=== PATIENT | female | born 1960 | race African-American/Black ===

== ENCOUNTER 2019-12-19 15:08 | Outpatient (CLI) | payer MEDICARE, MEDICAID, SELFPAY ==
--- NOTE | ~2019-12-19 | DEXA_ITS ---
Bone Density Report Name: Ewelina Roland Age: 59 Sex: Female Ethnicity: Black Date of : 1960 Indication: postmenopausal; Referring Provider: FRED AYALA Study: Bone densitometry was performed. Exam Date: December 19, 2019 Accession number: [id number] Bone Density: Region BMD T-score Z-score Classification AP Spine (L1-L4) 0.956 -0.8 -0.3 Normal Femoral Neck (Left) 0.816 -0.3 0.0 Normal Total Hip (Left) 1.102 1.3 1.2 Normal Total Hip Bilateral Avg 1.106 1.4 1.2 Normal Femoral Neck (Right) 0.799 -0.4 -0.1 Normal Total Hip (Right) 1.108 1.4 1.2 Normal World Health Organization criteria for BMD impression classify patients as: Normal (T-score at or above -1.0), Osteopenia (T-score between -1.0 and -2.5), or Osteoporosis (T-score at or below -2.5). 10-year Fracture Risk: FRAX not reported because: All T-scores for Spine Total, Hip Total, Femoral Neck at or above -1.0 Previous Exams: Region Exam Age BMD T-score BMD Change BMD Change Date g/cm2 vs Baseline vs Previous AP Spine(L1-L4) 12/19/2019 59 0.956 -0.8 0.057(6.4%)# -0.031(-3.1%)* 11/02/2015 55 0.986 -0.6 0.088(9.8%)# -0.005(-0.5%)# 08/25/2013 53 0.992 -0.5 0.093(10.4%)# 0.093(10.4%)# 07/31/2011 51 0.898 -1.4 Total Hip(Left) 12/19/2019 59 1.102 1.3 0.102(10.2%)# -0.046(-4.0%)# 11/02/2015 55 1.148 1.7 0.147(14.7%)# -0.054(-4.5%)# 08/25/2013 53 1.202 2.1 0.202(20.2%)# 0.202(20.2%)# 07/31/2011 51 1.001 0.5 Total Hip(Right) 12/19/2019 59 1.108 1.4 0.072(6.9%)# 0.012(1.1%) 11/02/2015 55 1.096 1.3 0.060(5.8%)# -0.061(-5.3%)# 08/25/2013 53 1.157 1.8 0.121(11.7%)# 0.121(11.7%)# 07/31/2011 51 1.036 0.8 *Denotes significance at 95% confidence level, LSC for AP Spine = 0.022 g/cm2, LSC for Total Hip = 0.027 g/cm2 Clinical Information Provided by Patient: Has used the following medications: Vitamin D Patient maximum height was 61 Menopause Age: 51 No regular weight bearing exercise Drinks caffeinated beverages Onset of menses at age 15 Number of children 1 Impression: The patient has normal bone mass. The BMD for the AP Spine(L1-L4) decreased, changing by -3.1% since the last DXA exam. Discussion: BONE DENSITY IS ABOVE THE MINIMUM DESIRABLE LEVEL AT ALL SKELETAL SITES TESTED. This patient?s bone mineral density is above the minimum desirable level (T-score -1.0 or better) at all sites measured.
== END 2019-12-19 15:09 | disposition home or self-care (01) ==
LOC: ANHIMG 15:17
PROVIDERS: Visit Provider Obstetrics & Gynecology
DX: Z78.0 Asymptomatic menopausal state (principal)
CPT/HCPCS: 77080

== ENCOUNTER 2020-11-01 09:01 | Outpatient (CLI) | payer MEDICARE, MEDICAID, SELFPAY ==
--- NOTE | ~2020-11-01 | MM_ITS ---
EXAMINATION: MM screening [facility] w [facility] HISTORY: Screening mammogram TECHNIQUE: Craniocaudal and mediolateral oblique 3-D tomosynthesis images were obtained and synthetic 2-D images were generated. CAD analysis was submitted and interpreted. COMPARISON: 1595 2019, 09/21/2018, 09/06/2017 bilateral digital screening mammogram examinations BREAST PARENCHYMAL COMPOSITION: There are scattered areas of fibroglandular density. FINDINGS: There is no evidence of suspicious mass, calcification, or architectural distortion to sugg est malignancy in either breast. There has been no suspicious interval change. IMPRESSION: 1. No mammographic evidence of malignancy. 2. Recommend routine screening mammography in one year. BI-RADS Category 1: Negative Reviewed, dictated and finalized at location A. MOBILE DEVELOPER
== END 2020-11-01 09:02 | disposition home or self-care (01) ==
LOC: ANHIMG 09:06
PROVIDERS: PCP Obstetrics & Gynecology; Visit Provider Obstetrics & Gynecology
DX: Z12.31 Encounter for screening mammogram for malignant neoplasm of breast (principal)
CPT/HCPCS: 77063; 77067

== ENCOUNTER 2020-12-17 08:27 | Outpatient (CLI) | payer MEDICARE, MEDICAID, SELFPAY | END 2020-12-17 08:28 | disposition home or self-care (01) | LOC: ANHCOVIDVC 08:27 | PROVIDERS: PCP Obstetrics & Gynecology | DX: Z23 Encounter for immunization (principal) | CPT/HCPCS: 0001A; 91300 ==

== ENCOUNTER 2021-01-07 08:29 | Outpatient (CLI) | payer MEDICARE, MEDICAID, SELFPAY | END 2021-01-07 08:30 | disposition home or self-care (01) | LOC: ANHCOVIDVC 08:29 | PROVIDERS: PCP Obstetrics & Gynecology | DX: Z23 Encounter for immunization (principal) | CPT/HCPCS: 0002A; 91300 ==

== ENCOUNTER 2021-03-11 21:40 | Emergency (ER) | payer MEDICARE, MEDICAID, SELFPAY ==
--- NOTE | ~2021-03-11 | XR_ITS ---
EXAMINATION: XR ankle RT min 3V, XR foot RT min 3V DATE: 03/12/2021 01:13 INDICATION: Medial right ankle pain extending over the dorsum of the foot and into the toes. TECHNIQUE: 1. Anteroposterior, mortise, additional oblique and lateral view of the right ankle were obtained. 2. Dorsoplantar, two oblique and lateral views of the right foot were obtained. COMPARISON: None. FINDINGS: Alignment of the foot and ankle is normal. No fracture or osteochondral lesion. Heterotopic ossicles about the tip the medial malleolus likely sequela of chronic ankle sprain. Moderate polyarticular ost eoarthritis with subarticular cystic changes at at multiple joints the midfoot including the navicula r cuneiform and multiple tarsal metatarsal joints. Mild osteoarthritis at many of the remaining joint s in the right foot. Moderate-sized plantar calcaneal spur. No ankle joint effusion. Diffuse soft tis carl swelling about the right foot and ankle. IMPRESSION: 1. Mild to moderate polyarticular osteoarthritis in the right foot. No acute osseous abnormality. Reviewed, dictated and finalized at location A. IMPRESSION: 1. Mild to moderate polyarticular osteoarthritis in the right foot. No acute os seous abnormality.
[2021-03-11 21:44] VITALS: BP 141/80; PULSE 90; RESP 18; TEMP 37.4; O2SAT 96
--- NOTE | 2021-03-12 01:00 | ED.EXTPRO ---
HPI - Extremity Problem General Chief complaint: Extremity Problem,Nontraumatic Stated complaint: right foot pain x 4 days Time Seen by Provider: 03/12/21 00:53 Source: patient Mode of arrival: ambulatory Limitations: no limitations History of Present Illness HPI Narrative: This is a 61-year-old female that presents to the emergency department for right foot pain x4 days. No known injury or trauma. Reports the pain is in the ankle and radiates into the foot on the dorsal surface. Pain is worse with weightbearing and relieved with rest. She has not been taking anything for pain. Denies fever, erythema, edema, decreased range of motion, or numbness. Related Data Home Medications Medication Instructions Recorded Confirmed aspirin 81 mg tablet,delayed 81 mg PO DAILY 11/27/19 release clonidine HCl 0.1 mg tablet 0.1 mg PO DAILY 11/27/19 diltiazem HCl 180 mg 180 mg PO DAILY 11/27/19 capsule,extended release 24 hr docusate sodium 100 mg capsule 100 mg PO DAILY 11/27/19 ferrous sulfate 325 mg (65 mg 325 mg PO DAILY 11/27/19 iron) tablet furosemide 40 mg tablet 40 mg PO QAM 11/27/19 hydrochlorothiazide 25 mg tablet 25 mg PO DAILY 11/27/19 lisinopril 40 mg tablet 40 mg PO DAILY 11/27/19 multivit with 1 tablet PO DAILY 11/27/19 kclyrqqx-ivjl-OV-lutein 8 mg iron-400 mcg-300 mcg tablet potassium citrate 10 mEq (1,080 10 meq PO TID 11/27/19 mg) tablet,extended release simvastatin 80 mg tablet 80 mg PO DAILY 11/27/19 Allergies Allergy/AdvReac Type Severity Reaction Status Date / Time No Known Allergies Allergy Verified 11/27/19 11:16 Review of Systems Review of Systems: Narrative: CONSTITUTIONAL: Denies fever MUSCULOSKELETAL: Reports joint pain, and myalgia. NEUROLOGIC: Denies numbness All systems reviewed & are unremarkable except as noted in HPI and below PMFSH Past Medical History Medical History (Updated 03/12/21 @ 01:31 by Imelda Sanchez PA-C) COPD (chronic obstructive pulmonary disease) Elevated lipids Hypertension Osteoarthritis of right knee Stroke Surgical History Surgical History History of knee surgery Family History Family History Mother Hypertension Sibling Hypertension Other Acute myocardial infarction Family history of malignant neoplasm Social History Social History Smoking status: Never smoker Alcohol intake: current Exam Narrative: Exam Narrative: GENERAL: Well-appearing, well-nourished, and in no acute distress. HEAD: Normocephalic, atraumatic. EYES: EOMI. EXTREMITIES: Normal range of motion. No edema, erythema or obvious deformity. Normal DP pulses. Normal sensation SKIN: Warm, dry, no rash. NEURO: No focal deficits. Alert and oriented x3. PSYCH: Normal mood and affect Course Vital Signs Vital signs: Vital Signs Temperature 99.3 F 03/11/21 21:44 Pulse Rate 90 03/11/21 21:44 Respiratory Rate 18 03/11/21 21:44 Blood Pressure 141/80 H 03/11/21 21:44 Pulse Oximetry 96 03/11/21 21:44 Temperature 99.3 F 03/11/21 21:44 Pulse Rate 90 03/11/21 21:44 Respiratory Rate 18 03/11/21 21:44 Blood Pressure 141/80 H 03/11/21 21:44 Pulse Oximetry 96 03/11/21 21:44 MDM - Extremity (Nontraumatic) MDM Narrative Medical decision making narrative: Patient presents the emergency department for right foot and ankle pain x4 days. No known injury or trauma. No erythema or warmth of the ankle. Patient is afebrile and nontoxic-appearing. She is neurovascularly intact. Right foot and ankle x-rays are without acute osseous abnormalities. Patient placed in postop shoe for comfort and instructed to rest, ice and take tbyg-[id number]-hbazwfk pain medication as needed. She is to follow-up with her primary care doctor. She was given warnings to return to the ER Imagin
[2021-03-12] MEDS: ACETAMINOPHEN 500 MG TABLET 1000 MG PO (01:41)
--- NOTE | 2021-03-12 01:41 | PC.NURSE ---
post op shoe applied as ordered.
[2021-03-12 01:48] VITALS: BP 141/86; PULSE 82; RESP 16; TEMP 36.3; O2SAT 98
== END 2021-03-12 01:49 | disposition home or self-care (01) ==
PROVIDERS: Emergency Provider Emergency Medicine; PCP Obstetrics & Gynecology
DX: S93.601A Unspecified sprain of right foot, initial encounter (principal); J44.9 Chronic obstructive pulmonary disease, unspecified; E78.5 Hyperlipidemia, unspecified; I10 Essential (primary) hypertension; M19.90 Unspecified osteoarthritis, unspecified site; X58.XXXA Exposure to other specified factors, initial encounter
CPT/HCPCS: 73610; 73630; 99283; A9270

== ENCOUNTER 2023-05-10 00:52 | Day surgery (SDC) | payer MEDICARE, MEDICAID, SELFPAY ==
[2023-04-29 14:32] VITALS: BMI 46.9
[2023-05-10 11:41] VITALS: BP 150/84; PULSE 77; RESP 77; TEMP 36.4; O2SAT 96
[2023-05-10] MEDS: LACTATED RINGERS 1,000 ML 150 ML IV CONT (11:50)
--- NOTE | 2023-05-10 11:55 | PM.HPGS ---
History of Present Illness History of Present Illness Consent: Risks, benefits, and alternatives have been discussed and questions answered. Patient agrees to proceed with procedure. Chief complaint: neoplasm screening Narrative: Ewelina Roland is a 63 year old female Presents for screening colonoscopy. Patient's current weight appetite and bowel movements are normal. Patient denies abdominal pain. She has had no bleeding. Family history noncontributory. Review of Systems Review of Systems: Review of systems noncontributory. [facility] Past Medical History Medical History Congestive heart failure COPD (chronic obstructive pulmonary disease) Elevated lipids H/O gastroesophageal reflux (GERD) Hypertension Osteoarthritis of right knee Sleep apnea Stroke Surgical History Surgical History H/O total cystectomy History of knee surgery Family History Family History Mother Hypertension Sibling Hypertension Father Hypertension Other Acute myocardial infarction Family history of malignant neoplasm Social History Social History Smoking status: Never smoker Alcohol intake: current Alcohol use details: occasional Substance use: never Substance use type: does not use Living arrangements: with family Spiritual care concerns: No Meds Home Medications and Allergies Home Medications Medication Instructions Recorded Confirmed Type aspirin 81 mg tablet,delayed 81 mg PO DAILY 11/27/19 04/29/23 History release clonidine HCl 0.1 mg tablet 0.1 mg PO BID 11/27/19 04/29/23 History diltiazem HCl 180 mg 180 mg PO DAILY 11/27/19 04/29/23 History capsule,extended release 24 hr (Cartia XT) docusate sodium 100 mg capsule 100 mg PO DAILY 11/27/19 04/29/23 History ferrous sulfate 325 mg (65 mg 325 mg PO DAILY 11/27/19 04/29/23 History iron) tablet furosemide 40 mg tablet 40 mg PO QAM 11/27/19 04/29/23 History hydrochlorothiazide 25 mg tablet 25 mg PO DAILY 11/27/19 04/29/23 History lisinopril 40 mg tablet 40 mg PO DAILY 11/27/19 04/29/23 History usinbsjd-dbcz-qvfg 8 mg-folic 400 1 tablet PO DAILY 11/27/19 04/29/23 History mcg-K 50 mcg-lutein 300 mcg tablet (Centrum Silver Women) simvastatin 80 mg tablet 80 mg PO DAILY 11/27/19 04/29/23 History cholecalciferol (vitamin D3) 125 125 mcg PO DAILY 04/29/23 04/29/23 History mcg (5,000 unit) tablet (Vitamin D3) omeprazole 20 mg capsule,delayed 20 mg PO DAILY PRN Indigestion 04/29/23 04/29/23 History release potassium chloride 20 mEq 20 meq PO DAILY 04/29/23 04/29/23 History tablet,extended release(part/cryst) Allergies Allergy/AdvReac Type Severity Reaction Status Date / Time No Known Allergies Allergy Verified 05/10/23 11:40 Vital Signs Vital Signs - 24 hr 05/10/23 11:41 Temperature 97.5 F L Pulse Rate 77 Respiratory Rate 77 H Blood Pressure 150/84 H Pulse Oximetry 96 Oxygen Delivery Room Air Exam Narrative: Physical exam reveals patient to be alert. Vital signs stable. HEENT exam is unremarkable. Patient is anicteric. Lungs are clear to auscultation and percussion. Heart is without murmur or extra sounds. Abdomen bowel sounds are present soft nontender with no organomegaly. Digital external rectal exam normal. Assessment and Plan Assessment and plan (1) Encounter for screening colonoscopy: Code(s): Z12.11 - Encounter for screening for malignant neoplasm of colon Status: Acute Assessment and Plan: Patient presents today for screening colonoscopy. She appears to be at average risk for colon polyps. Further recommendations may be given after endoscopy.
--- NOTE | 2023-05-10 13:10 | WPDANESEPPF ---
Anes - Initial Pre Proc Eval Procedure: Operation Date: 05/10/23 13:00 Proposed Procedures p Screening Colonoscopy - Devon Meneses MD Date/Time: 05/10/23 13:10 Surgeon: Devon Meneses MD Pre Op Diagnosis: neoplasm screening Patient Data Age: 63 Gender: F Height: 1.52 m Weight: 111.8 kg Last Vital Signs Temp 97.5 F L 05/10/23 11:41 Pulse 77 05/10/23 11:41 Resp 77 H 05/10/23 11:41 BP 150/84 H 05/10/23 11:41 Pulse Ox 96 05/10/23 11:41 O2 Del Method Room Air 05/10/23 11:41 Allergies Allergy/AdvReac Type Severity Reaction Status Date / Time No Known Allergies Allergy Verified 05/10/23 11:40 Home Medications Medication Instructions Recorded Confirmed Type aspirin 81 mg tablet,delayed 81 mg PO DAILY 11/27/19 04/29/23 History release clonidine HCl 0.1 mg tablet 0.1 mg PO BID 11/27/19 04/29/23 History diltiazem HCl 180 mg 180 mg PO DAILY 11/27/19 04/29/23 History capsule,extended release 24 hr (Cartia XT) docusate sodium 100 mg capsule 100 mg PO DAILY 11/27/19 04/29/23 History ferrous sulfate 325 mg (65 mg 325 mg PO DAILY 11/27/19 04/29/23 History iron) tablet furosemide 40 mg tablet 40 mg PO QAM 11/27/19 04/29/23 History hydrochlorothiazide 25 mg tablet 25 mg PO DAILY 11/27/19 04/29/23 History lisinopril 40 mg tablet 40 mg PO DAILY 11/27/19 04/29/23 History moildoai-ohrs-lsei 8 mg-folic 400 1 tablet PO DAILY 11/27/19 04/29/23 History mcg-K 50 mcg-lutein 300 mcg tablet (Centrum Silver Women) simvastatin 80 mg tablet 80 mg PO DAILY 11/27/19 04/29/23 History cholecalciferol (vitamin D3) 125 125 mcg PO DAILY 04/29/23 04/29/23 History mcg (5,000 unit) tablet (Vitamin D3) omeprazole 20 mg capsule,delayed 20 mg PO DAILY PRN Indigestion 04/29/23 04/29/23 History release potassium chloride 20 mEq 20 meq PO DAILY 04/29/23 04/29/23 History tablet,extended release(part/cryst) Patient hx anesthesia problems: none Family hx anesthesia problems: none Results Review: All pre-operative results and documents have been reviewed as part of the pre-operative evaluation. [facility] Past Medical History Medical History Congestive heart failure COPD (chronic obstructive pulmonary disease) Elevated lipids H/O gastroesophageal reflux (GERD) Hypertension Osteoarthritis of right knee Sleep apnea Stroke Surgical History Surgical History H/O total cystectomy History of knee surgery Family History Family History Mother Hypertension Sibling Hypertension Father Hypertension Other Acute myocardial infarction Family history of malignant neoplasm Social History Social History Smoking status: Never smoker Alcohol intake: current Alcohol use details: occasional Substance use: never Substance use type: does not use Living arrangements: with family Spiritual care concerns: No Anes - Eval Final PreProcedure Day of Procedure 05/10/23 13:10 Patient weight: morbidly obese Heart: regular rate and rhythm Lungs: clear to auscultation Airway: Mallampati scale class III Neurological: alert and oriented Last oral intake: >/= 8 hours ASA classification: III Emergent: no Anesthetic plan: proceed Anesthesia type and monitoring: general GIVS and standard monitoring Results Review: All pre-operative results and documents have been reviewed as part of the pre-operative evaluation. Informed Consent: The patient's anesthetic plan and its attendant risks and benefits were discussed with the patient/family/POA. Questions were solicited and answers provided to the satisfaction of the patient/family/POA.
[2023-05-10 13:36] VITALS: BP 109/70; PULSE 70; RESP 20; O2SAT 95
[2023-05-10 13:46] VITALS: BP 118/74; PULSE 70; RESP 18; O2SAT 99
[2023-05-10 13:56] VITALS: BP 129/78; PULSE 67; RESP 20; O2SAT 99
== END 2023-05-10 14:07 | disposition home or self-care (01) ==
PROVIDERS: Referring Provider Obstetrics & Gynecology; Visit Provider Internal Medicine Gastroenterology
PROC: 0DJD8ZZ Inspection of Lower Intestinal Tract, Via Natural or Artificial Opening Endoscopic (ICD-10-PCS; CPT 45378; principal; 2023-05-10 13:00)
DX: Z12.11 Encounter for screening for malignant neoplasm of colon (principal); K57.30 Diverticulosis of large intestine without perforation or abscess without bleeding; I11.0 Hypertensive heart disease with heart failure; I50.9 Heart failure, unspecified; K64.8 Other hemorrhoids; J44.9 Chronic obstructive pulmonary disease, unspecified; E78.5 Hyperlipidemia, unspecified; K21.9 Gastro-esophageal reflux disease without esophagitis; G47.30 Sleep apnea, unspecified; E66.01 Morbid (severe) obesity due to excess calories; Z68.42 Body mass index [BMI] 45.0-49.9, adult; Z86.73 Personal history of transient ischemic attack (TIA), and cerebral infarction without residual deficits; Z79.82 Long term (current) use of aspirin
CPT/HCPCS: G0121; J2704; J7120

== ENCOUNTER 2023-05-27 15:00 | Outpatient (CLI) | payer MEDICARE, MEDICAID, SELFPAY ==
--- NOTE | ~2023-05-27 | MM_ITS ---
EXAMINATION: MM screening [facility] BI w claire HISTORY: Screening TECHNIQUE: Craniocaudal and mediolateral oblique 3-D tomosynthesis images were obtained and synthetic 2-D images were generated. CAD analysis was submitted and interpreted. COMPARISON: Comparison to multiple prior studies sequentially, with oldest reviewed study dated 08/11. BREAST PARENCHYMAL COMPOSITION: There are scattered areas of fibroglandular density. FINDINGS: There is no evidence of suspicious mass, calcification, or architectural distortion to sugg est malignancy in either breast. There has been no suspicious interval change. IMPRESSION: 1. No mammographic evidence of malignancy. 2. Recommend routine screening mammography in one year. BI-RADS Category 1: Negative Reviewed, dictated and finalized at location A.
== END 2023-05-27 15:01 | disposition home or self-care (01) ==
PROVIDERS: Visit Provider Obstetrics & Gynecology
DX: Z12.31 Encounter for screening mammogram for malignant neoplasm of breast (principal)
CPT/HCPCS: 77063; 77067

== ENCOUNTER 2023-09-15 21:22 | Observation (INO) | payer MEDICARE, MEDICAID, SELFPAY ==
--- NOTE | ~2023-09-15 | XR_ITS ---
EXAMINATION: XR chest 2V Exam Date/Time: 09/15/2023 21:50 SANDBLAST OPERATOR HISTORY: chest pain Comparison: 06/24/2018. RESULT: Lines, tubes, and devices: None. Lungs and pleura: Clear. Cardiomediastinal silhouette: Stable. Other: No acute osseous or upper abdominal finding. IMPRESSION: No acute cardiopulmonary process. Reviewed, dictated and finalized at location K. BLAST OPERATOR
--- NOTE | 2023-09-15 21:26 | ECG_ITS ---
Measurements Intervals [place] Rate: 64 P: 49 HI: 166 QRS: -21 QRSD: 97 T: 10 QT: 374 QTc: 386 Interpretive Statements SINUS RHYTHM BORDERLINE LEFT AXIS DEVIATION [QRS AXIS < -20] NO PREVIOUS ECG AVAILABLE FOR COMPARISON Electronically Signed On 09-16-2023 9:18:39 BOTTLE WASHER by Gonzalez Choudhury M.D.
[2023-09-15 21:30] VITALS: BP 177/106; PULSE 64; RESP 14; TEMP 36.4; O2SAT 98
[2023-09-15 21:57] LABS: Basophils Absolute Auto 0.1 K/mm3 (0.0-0.1); Basophils Percent Auto 0.9 % (0.2-1.2); Eosinophils Absolute Auto 0.2 K/mm3 (0-0.3); Eosinophils Percent Auto 2.1 % (0-4.4); Hemoglobin 13.5 g/dL (12.0-15.0); Immature Granulocyte Absolute 0.02 K/mm3 (0.00-0.031); Immature Granulocyte Percent A 0.3 % (0-0.5); Lymphocytes Absolute Auto 3.34 K/mm3 (0.9-3.2); Lymphocytes Percent Auto 43.7 % (18.3-44.2); Mean Corpuscular HGB Conc 32.1 g/dl (32-36); Mean Corpuscular Hemoglobin 28.1 pg (26-34); Mean Corpuscular Volume 87.5 fl (80-100); Mean Platelet Volume 10.6 fl (7.4-10.4); Monocytes Absolute Auto 0.7 K/mm3 (0.1-0.6); Neutrophils Absolute Auto 3.4 K/mm3 (1.3-6.7); Platelet Count Result 219 k/mm3 (150-375); Red Cell Distribution Width 13.3 % (11.5-14.5); White Blood Count 7.7 K/mm3 (4.5-10.0)
[2023-09-15 22:06] LABS: Prothrombin Time 13.2 Seconds (11.1-14.7)
[2023-09-15 22:07] LABS: Partial Thromboplastin Time 27.4 SECONDS (22.3-36.8)
[2023-09-15 22:17] LABS: Alanine Aminotransferase 23 U/L (6-35); Albumin Level 4.6 g/dL (3.5-5.1); Alkaline Phosphatase 107 U/L (38-126); Anion Gap 12 mmol/L (8-16); Aspartate Amino Transferase 29 U/L (14-36); Bilirubin,Total 0.6 mg/dL (0.2-1.3); Blood Urea Nitrogen 18 mg/dL (7-17); Calcium 9.8 mg/dL (8.4-10.2); Carbon Dioxide 29 mmol/L (22-30); Chloride 98 mmol/L (98-107); Estimated CRCL calculation 74 ml/min; Estimated Glomerular Filt Rate > 60; Glucose 103 mg/dL (65-110); Lipase 108 U/L (23-300); Potassium 3.4 mmol/L (3.4-5.0); Sodium 139 mmol/L (137-145)
[2023-09-15 22:28] LABS: Troponin I < 0.012 ng/mL (0.000-0.034)
[2023-09-16] VITALS (39 sets, daily range): BP systolic 113–161; BP diastolic 71–93; PULSE 57–87; RESP 14–21; O2SAT 94–100
--- NOTE | 2023-09-16 01:55 | ECG_ITS ---
Measurements Intervals [place] Rate: 60 P: 30 RI: 123 QRS: -18 QRSD: 100 T: 11 QT: 404 QTc: 405 Interpretive Statements SINUS RHYTHM LOW QRS VOLTAGE IN PRECORDIAL LEADS [QRS DEFLECTION < 1.0 mV IN CHEST LEADS] COMPARED TO ECG 09/15/2023 21:48:04 NO SIGNIFICANT CHANGES Electronically Signed On 09-16-2023 9:20:33 CERAMIC WORKER by Gonzalez Choudhury M.D.
[2023-09-16 02:02] LABS: Troponin I < 0.012 ng/mL (0.000-0.034)
--- NOTE | 2023-09-16 02:10 | PC.NURSE ---
Runs of Vtach noted at 0153 and 0207 on [employer]. Printed and shown to Dr. Horton
--- NOTE | 2023-09-16 02:21 | ED.CHESTPAIN ---
HPI - Chest Pain General Chief Complaint: Chest Pain Stated Complaint: weakness, left arm pain Time Seen by Provider: 09/16/23 02:08 History of Present Illness HPI narrative: Patient is a 63-year-old female with a history of CHF, hypertension, GERD, hyperlipidemia presenting with weakness and left arm pain. Patient states that earlier today her left arm was feeling sore and heavy. States that she also had some substernal chest pain. States that she felt extremely weak and so she became concerned that she was having a heart attack. States that both of her parents had heart attacks. States that she recently had a stress test and was told that there was a small blockage that she needs to follow up for. She denies shortness of breath, abdominal pain, nausea vomiting, leg swelling. Denies lightheadedness or syncope. No palpitations. No further complaints. Related Data Home Medications Medication Instructions Recorded Confirmed aspirin 81 mg tablet,delayed 81 mg PO DAILY 11/27/19 09/16/23 release clonidine HCl 0.1 mg tablet 0.1 mg PO BID 11/27/19 09/16/23 diltiazem HCl 180 mg 180 mg PO DAILY 11/27/19 09/16/23 capsule,extended release 24 hr (Cartia XT) docusate sodium 100 mg capsule 100 mg PO DAILY 11/27/19 09/16/23 ferrous sulfate 325 mg (65 mg 325 mg PO DAILY 11/27/19 09/16/23 iron) tablet furosemide 40 mg tablet 40 mg PO QAM 11/27/19 09/16/23 hydrochlorothiazide 25 mg tablet 25 mg PO DAILY 11/27/19 09/16/23 lisinopril 40 mg tablet 40 mg PO DAILY 11/27/19 09/16/23 pfmknvpt-gpwk-npgo 8 mg-folic 400 1 tablet PO DAILY 11/27/19 09/16/23 mcg-K 50 mcg-lutein 300 mcg tablet (Centrum Silver Women) simvastatin 80 mg tablet 80 mg PO DAILY 11/27/19 09/16/23 cholecalciferol (vitamin D3) 125 125 mcg PO DAILY 04/29/23 09/16/23 mcg (5,000 unit) tablet (Vitamin D3) potassium chloride 20 mEq 20 meq PO DAILY 04/29/23 09/16/23 tablet,extended release(part/cryst) Allergies Allergy/AdvReac Type Severity Reaction Status Date / Time No Known Allergies Allergy Verified 05/10/23 11:40 Review of Systems Review of Systems: All systems reviewed & are unremarkable except as noted in HPI and below PMFSH Past Medical History Medical History Congestive heart failure COPD (chronic obstructive pulmonary disease) Elevated lipids Family history of heart disease H/O gastroesophageal reflux (GERD) Hypertension Osteoarthritis of right knee Sleep apnea Stroke Surgical History Surgical History H/O total cystectomy History of knee surgery Family History Family History Mother Hypertension Sibling Hypertension Father Hypertension Other Acute myocardial infarction Family history of malignant neoplasm Social History Social History Smoking status: Never smoker Alcohol intake: current Alcohol use details: occasional Substance use: never Substance use type: does not use Living arrangements: with family Spiritual care concerns: No Exam Narrative: GENERAL: Nontoxic, no acute distress, pleasant cooperative HEAD: Normocephalic, atraumatic. EYES: PERRLA and EOMI. ENT: Mucous membranes moist. NECK: Supple. CHEST: Clear to auscultation. No respiratory distress. HEART: Regular rate and rhythm. No murmur heard. Normal peripheral pulses. ABDOMEN: Soft, nontender, nondistended EXTREMITIES: Normal range of motion. No edema. SKIN: Warm, dry NEURO: Alert and oriented x3. PSYCH: Normal mood and affect. Course Vital Signs Vital signs: Vital Signs Temperature 97.6 F 09/15/23 21:30 Pulse Rate 64 09/15/23 21:30 Respiratory Rate 14 09/15/23 21:30 Blood Pressure 177/106 H 09/15/23 21:30 Pulse Oximetry 98 09/15/23 21:30 Temperature 97.6 F 09/15/23 21:30 Pulse Rate
[2023-09-16] MEDS: ASPIRIN 81 MG CHEWABLE TABLET 324 MG PO (02:23)
[2023-09-16 02:38] LABS: Magnesium 1.9 mg/dL (1.6-2.3)
[2023-09-16 02:48] LABS: NT Pro B Type Natriuretic Pept < 20 pg/mL (19.9-100)
[2023-09-16] MEDS: POTASSIUM CHLORIDE 20 MEQ ER TABLET 40 MEQ PO (02:51)
[2023-09-16 04:40] LABS: Troponin I < 0.012 ng/mL (0.000-0.034)
--- NOTE | 2023-09-16 08:07 | ECHO_ITS ---
Patient Info Name: Ewelina Roland Age: 63 years : 1960 Gender: Female Ht: 65 in Wt: 260 lbs BSA: 2.39 m2 HR: 2 bpm BP: 161 / 92 mmHg Heart Rhythm: Sinus Rhythm Technical Quality: Good Exam Date: 09/16/2023 2:43 PM Exam Location: Echo Lab Patient Status: Outpatient Admit Date: 09/16/2023 Staff Ordering Physician: Fritz Augustine MD [employer] Principal: Clover Islas RDCS Attending Provider: Fritz Augustine MD Exam Type: CA echo doppler color flow Study Info Indications - CHEST PAIN WITH RECENT ABNORMAL STRESS TEST Complete two-dimensional, color flow and Doppler transthoracic echocardiogram is performed. Summary 1. Complete two-dimensional, color flow and Doppler transthoracic echocardiogram is performed. 2. Left ventricular chamber dimension is normal. 3. Left ventricular systolic function is normal, estimated at 50-55%. 4. There is mildly increased left ventricular wall thickness. 5. The left ventricular diastolic function is grade I diastolic dysfunction. 6. Right ventricular systolic function is normal. 7. There is trace mitral valve regurgitation. 8. There is trace tricuspid valve regurgitation. 9. There is trace pulmonic regurgitation. Left Ventricle Left ventricular chamber dimension is normal. Left ventricular systolic function is normal, estimated at 50-55%. There is mildly increased left ventricular wall thickness. The left ventricular diastolic function is grade I diastolic dysfunction. Right Ventricle Right ventricular chamber dimension is normal. Right ventricular systolic function is normal. Left Atria Left atrial chamber dimension is normal. Right Atria Right atrial chamber dimension is normal. Atrial Septum Intact interatrial septum visualized by color flow imaging. Aortic Valve The aortic valve is not well visualized. There is no aortic valve regurgitation. There is mild aortic valve calcification. Pulmonic Valve The pulmonic valve is not well visualized. There is trace pulmonic regurgitation. Mitral Valve There is trace mitral valve regurgitation. Tricuspid Valve There is trace tricuspid valve regurgitation. Pericardium/Pleural There is no pericardial effusion. Inferior Vena Cava Normal inferior vena cava with >50% collapse upon inspiration consistent with normal right atrial pressure, 3 mmHg. Aorta The aortic root size at the sinus of Valsalva is normal. Left Ventricular Outflow Tract Name Value Normal LVOT 2D LVOT Diameter 2.0 cm LVOT Doppler LVOT Peak Gradient 6 mmHg LVOT Mean Gradient 3 mmHg LVOT VTI 24 cm LVOT VTI/AV VTI Ratio 0.8 LVOT Stroke Volume 77 ml LVOT CO 17.0 l/min LVOT CI 7.1 l/min/m2 Pulmonic Valve Name Value Normal PV Doppler PV Peak Gradient 4 mmHg M
--- NOTE | 2023-09-16 08:31 | PC.NURSE ---
CALL TO [facility]UARD[facility] FOR CARDS CONSULT
--- NOTE | 2023-09-16 09:09 | PC.NURSE ---
JOANNE sent to Dr Felton's office for strest test reports
--- NOTE | 2023-09-16 13:07 | PC.NURSE ---
Pt requesting to go home, Dr. Augustine contacted, met RN at bedside, spoke with pt. Pt to receive bedside ECHO with results prior to pt being discharged. pt understands and accepts this plan. ECHO contacted.
--- NOTE | 2023-09-16 13:14 | PM.IMHP ---
H&P: HPI History of Present Illness Date/Time: 09/16/23 13:14 Chief Complaint: Patient came to the ER for evaluation for her chest and left arm pain Narrative: She is a very pleasant 63 years old white female, with very strong history of for coronary artery disease in the family, who came to the ER last night complaining of chest pain intensity 4-5/10 located in the anterior chest with a feeling of soreness and heaviness in the left arm, no radiation, no association with any sweating or palpitations. She was extremely weak and became concerned that she was having a heart attack. Her father at age of 39 and her sisters at the age of 50s with heart attacks. She was brought to the ER for evaluation, workup was done, cardiac enzymes were followed which are negative. She had a recent stress test done and was told there was a small blockage that she needs to follow-up with her Cardiology. She is being admitted for tele monitoring, Cardiology evaluation and work up. Review of Systems Review of Systems: 14 systems were reviewed with pertinent positives and negatives per HPI. Except as documented in the HPI/progress notes, all other systems were reviewed and are negative. All systems reviewed & are unremarkable except as noted in HPI and below PMFSH Past Medical History Medical History (Updated 09/16/23 @ 13:21 by Fritz Augustine MD) Congestive heart failure COPD (chronic obstructive pulmonary disease) Elevated lipids Family history of heart disease H/O gastroesophageal reflux (GERD) Hypertension Osteoarthritis of right knee Sleep apnea Stroke Surgical History Surgical History H/O total cystectomy History of knee surgery Family History Family History Mother Hypertension Sibling Hypertension Father Hypertension Other Acute myocardial infarction Family history of malignant neoplasm Social History Social History Smoking status: Never smoker Alcohol intake: current Alcohol use details: occasional Substance use: never Substance use type: does not use Living arrangements: with family Spiritual care concerns: No Meds Home Medications and Allergies Home Medications Medication Instructions Recorded Confirmed Type aspirin 81 mg tablet,delayed 81 mg PO DAILY 11/27/19 09/16/23 History release clonidine HCl 0.1 mg tablet 0.1 mg PO BID 11/27/19 09/16/23 History diltiazem HCl 180 mg 180 mg PO DAILY 11/27/19 09/16/23 History capsule,extended release 24 hr (Cartia XT) docusate sodium 100 mg capsule 100 mg PO DAILY 11/27/19 09/16/23 History ferrous sulfate 325 mg (65 mg 325 mg PO DAILY 11/27/19 09/16/23 History iron) tablet furosemide 40 mg tablet 40 mg PO QAM 11/27/19 09/16/23 History hydrochlorothiazide 25 mg tablet 25 mg PO DAILY 11/27/19 09/16/23 History lisinopril 40 mg tablet 40 mg PO DAILY 11/27/19 09/16/23 History fjkpveot-bnqv-mqqc 8 mg-folic 400 1 tablet PO DAILY 11/27/19 09/16/23 History mcg-K 50 mcg-lutein 300 mcg tablet (Centrum Silver Women) simvastatin 80 mg tablet 80 mg PO DAILY 11/27/19 09/16/23 History cholecalciferol (vitamin D3) 125 125 mcg PO DAILY 04/29/23 09/16/23 History mcg (5,000 unit) tablet (Vitamin D3) potassium chloride 20 mEq 20 meq PO DAILY 04/29/23 09/16/23 History tablet,extended release(part/cryst) Allergies Allergy/AdvReac Type Severity Reaction Status Date / Time No Known Allergies Allergy Verified 05/10/23 11:40 Vital Signs Vital Signs - 24 hr 09/15/23 21:30 09/16/23 01:11 09/16/23 01:15 Temperature 36.4 C Pulse Rate 64 64 66 Respiratory Rate 14 19 Blood Pressure 177/106 H Pulse Oximetry 98 98 Oxygen Delivery 09/16/23 01:17 09/16/23 01:30 09/16/23 01:32 Temperature Pulse Rate 62 61 63 Respiratory Rate 16 18 17
--- NOTE | 2023-09-16 13:18 | PM.CNCAR ---
Assessment and Plan Assessment and plan (1) Chest pain: Code(s): R07.9 - Chest pain, unspecified Status: Acute Assessment and Plan: Atypical chest pain. Negative troponins x 3. EKG without ischemic changes. She had a nuclear stress test in August that showed a small area of ischemia at the inferoseptal region. Her cardiac CT in 2018 showed mild NOCAD. She did follow up with her cardiology team after the stress test, noted on 09/14/23, where their notes recommended to obtain echocardiogram. She is scheduled to see Dr. Buenrostro on 10/05. Echocardiogram has been ordered by Hospitalist. If echocardiogram without significant abnormality, then no further inpatient cardiac workup needed at this time, and patient can be discharged and follow up with her primary Traffic Sign Supervisor. Will start antianginal therapy with Imdur. Of note, the ER note stated they noticed a 20 beat run of NSVT overnight. I personally reviewed the telemetry, and this was NOT non-sustained ventricular tachycardia. This was artifact. No significant arrhythmias noted on tele. (2) Hypertension: Code(s): I10 - Essential (primary) hypertension Status: Acute Assessment and Plan: Stable, continue home antihypertensive regimen. (3) Congestive heart failure: Code(s): I50.9 - Heart failure, unspecified Status: Acute Assessment and Plan: Stable. Plan Recommendations and plan discussed with Hospitalist. History of Present Illness History of Present Illness Consult date/time: 09/16/23 13:18 Requesting physician: Fritz Augustine MD Consult reason: chest pain Reason For Visit: Nonsustained Ventricular Tachycardia Narrative: We are consulted for chest pain. This is a 63 year old female with hypertension, morbid obesity, chronic diastolic heart failure who presented with left arm weakness, chest pain. Patient states that she noted her left arm was weak. Reports central chest pain that began yesterday, currently resolved. The chest pain gets worse if she turns her body to the side. ER workup showed negative troponins x 3, EKG without ischemic changes. Her primary site lead is Dr. Buenrostro. She had a nuclear stress test in August that showed a small area of ischemia at the inferoseptal region. Her cardiac CT in 2019 showed mild NOCAD. She did follow up with her cardiology team after the stress test, noted on 09/14, where their notes recommended to obtain echocardiogram. She is scheduled to see Dr. Buenrostro on 10/05. Review of Systems Review of Systems: All systems reviewed & are unremarkable except as noted in HPI and below (HPI) [facility] Past Medical History Medical History Congestive heart failure COPD (chronic obstructive pulmonary disease) Elevated lipids Family history of heart disease H/O gastroesophageal reflux (GERD) Hypertension Osteoarthritis of right knee Sleep apnea Stroke Surgical History Surgical History H/O total cystectomy History of knee surgery Family History Family History Mother Hypertension Sibling Hypertension Father Hypertension Other Acute myocardial infarction Family history of malignant neoplasm Social History Social History Smoking status: Never smoker Alcohol intake: current Alcohol use details: occasional Substance use: never Substance use type: does not use Living arrangements: with family Spiritual care concerns: No Meds Home Medications and Allergies Home Medications Medication Instructions Recorded Confirmed Type aspirin 81 mg tablet,delayed 81 mg PO DAILY 11/27/19 09/16/23 History release clonidine HCl 0.1 mg tablet 0.1 mg PO BID 11/27/19 09/16/23 History diltiazem HCl 180 mg 180 mg PO DAILY 11/27/19 09/16/23 History capsule,extended
--- NOTE | 2023-09-16 13:30 | PM.DS ---
DS: Admitting Diagnosis Discharge Date 09/16/2023: Admitting Diagnosis Chest pain Strong family history of premature CAD DS: Discharge Diagnosis Discharge Diagnosis (1) Chest pain: Code(s): R07.9 - Chest pain, unspecified Status: Acute (2) Family history of heart disease: Code(s): Z82.49 - Family history of ischemic heart disease and other diseases of the circulatory system Status: Acute (3) Sleep apnea: Code(s): G47.30 - Sleep apnea, unspecified Status: Acute (4) Hypertension: Code(s): I10 - Essential (primary) hypertension Status: Acute (5) H/O gastroesophageal reflux (GERD): Code(s): Z87.19 - Personal history of other diseases of the digestive system Status: Acute (6) Elevated lipids: Code(s): E78.5 - Hyperlipidemia, unspecified Status: Acute (7) COPD (chronic obstructive pulmonary disease): Code(s): J44.9 - Chronic obstructive pulmonary disease, unspecified Status: Acute (8) Congestive heart failure: Code(s): I50.9 - Heart failure, unspecified Status: Acute (9) Well woman exam with routine gynecological exam: Code(s): Z01.419 - Encounter for gynecological examination (general) (routine) without abnormal findings Status: Acute (10) Encounter for screening colonoscopy: Code(s): Z12.11 - Encounter for screening for malignant neoplasm of colon Status: Acute (11) Morbid obesity with BMI of 45.0-49.9, adult: Code(s): E66.01 - Morbid (severe) obesity due to excess calories; Z68.42 - Body mass index [BMI] 45.0-49.9, adult Status: Acute (12) Osteoarthritis of right knee: Qualifiers: Osteoarthritis type: primary Qualified Code(s): M17.11 - Unilateral primary osteoarthritis, right knee Code(s): M17.11 - Unilateral primary osteoarthritis, right knee Status: Acute DS: Summary Hospital Course Reason for hospitalization: Patient admitted with chest pain Hospital Course: H&P: HPI History of Present Illness Date/Time: 09/16/23? 13:14 Chief Complaint: Patient came to the ER for evaluation for her chest and left arm pain Narrative: She is a very pleasant 63 years old white female, with very strong history of for coronary artery disease in the family, who came to the ER last night complaining of chest pain intensity 4-5/10 located in the anterior chest with a feeling of soreness and heaviness in the left arm, no radiation, no association with any sweating or palpitations.? She was extremely weak and became concerned that she was having a heart attack.? Her father at age of 39 and her sisters at the age of 50s with heart attacks.? She was brought to the ER for evaluation, workup was done, cardiac enzymes were followed which are negative.? She had a recent stress test done and was told there was a small blockage that she needs to follow-up with her Cardiology.? She is being admitted for tele monitoring, Cardiology evaluation and work up. Plan Place patient in medical unit under observation status Continuous cardiac tele-monitoring Patient given Aspirin in the ER Initial EKG and 3 sets of cardiac enzymes are negative Patient seen and evaluated by our inpatient form setter steel forms who reviewed the stress test results done recently Full 2-D echo with color-flow and doppler ordered to evaluate cardiac structure and function Cardiology has cleared her for discharge back to her PCP and form setter steel forms once 2D echo is done Given strong family history of CAD, she has been started on isosorbide mononitrate 30 mg p.o. daily Nitroglycerin sublingual tablets q.5 minutes p.r.n. ordered for chest pain DC planning back home after 2D echo is done with instructions for close follow-up with PCP and her Cardiologyist as an outpatient Detailed discharge directions delivered to the patient by myself and my nursing staff, who verbalizes understanding and is very happy and satisfied with the plan.
[2023-09-16] MEDS: ISOSORBIDE MONONITRATE 30 MG TAB.ER.24H PO (15:21)
== END 2023-09-16 17:00 | disposition home or self-care (01) ==
LOC: ANHED 09-16 03:51 → ANHIMU 09-16 04:41
PROVIDERS: Admitting Provider Internal Medicine; Emergency Provider Emergency Medicine; Visit Provider Family Medicine
DX: R07.9 Chest pain, unspecified (principal); I25.10 Atherosclerotic heart disease of native coronary artery without angina pectoris; I11.0 Hypertensive heart disease with heart failure; I50.9 Heart failure, unspecified; E78.5 Hyperlipidemia, unspecified; E66.01 Morbid (severe) obesity due to excess calories; M17.11 Unilateral primary osteoarthritis, right knee; Z68.41 Body mass index [BMI] 40.0-44.9, adult; J44.9 Chronic obstructive pulmonary disease, unspecified; K21.9 Gastro-esophageal reflux disease without esophagitis; G47.30 Sleep apnea, unspecified; Z87.19 Personal history of other diseases of the digestive system; Z86.73 Personal history of transient ischemic attack (TIA), and cerebral infarction without residual deficits; Z79.82 Long term (current) use of aspirin; Z79.899 Other long term (current) drug therapy; Z82.49 Family history of ischemic heart disease and other diseases of the circulatory system
CPT/HCPCS: 36415; 71046; 80053; 83690; 83735; 83880; 84484; 85025; 85610; 85730; 93005; 93306; 99285; A9270; G0378

== ENCOUNTER 2024-05-11 04:31 | Emergency (ER) | payer MEDICARE, MEDICAID, SELFPAY ==
--- NOTE | ~2024-05-11 | XR_ITS ---
Left foot Technique: AP, oblique, and lateral views were obtained. Clinical History: Pain and swelling Findings: No acute fracture or dislocation is seen. Osseous alignment is anatomic. Joint spaces are p reserved without erosive or degenerative change. Plantar calcaneal spur present. There is mild soft t issue swelling dorsally at the forefoot. Impression: No fracture or dislocation. Plantar calcaneal spur. Probable soft tissue swelling dorsally at the forefoot. Reviewed, dictated and finalized at location M. Impression: No fracture or dislocation. Plantar calcaneal spur. Probable soft tissue swelling dorsally at the forefoot.
--- NOTE | ~2024-05-11 | XR_ITS ---
Left ankle Technique: AP, oblique, and lateral views were obtained. Clinical History: Pain and swelling Findings: No acute fracture or dislocation is seen. Osseous alignment is anatomic. Ankle mortise and other visualized joint spaces are preserved. Soft tissues are otherwise unremarkable. Impression: Unremarkable left ankle. Reviewed, dictated and finalized at [facility]. Impression: Unremarkable left ankle.
[2024-05-11 04:39] VITALS: BP 158/74; PULSE 94; RESP 16; TEMP 37.2; O2SAT 97
--- NOTE | 2024-05-11 04:47 | ECG_ITS ---
Test Date: 2024-05-11 05:07:30 Measurements Intervals [place] Rate: 73 P: 35 OH: 156 QRS: -23 QRSD: 98 T: -13 QT: 363 QTc: 400 Interpretive Statements SINUS RHYTHM BORDERLINE LEFT AXIS DEVIATION [QRS AXIS < -20] NONSPECIFIC T-WAVE ABNORMALITY LOW QRS VOLTAGE IN PRECORDIAL LEADS [QRS DEFLECTION < 1.0 mV IN CHEST LEADS] ABNORMAL ECG No previous ECG available for comparison Electronically Signed On 05-12-2024 10:51:13 CDT by Nikolai Trinidad M.D.
[2024-05-11 04:50] VITALS: PULSE 75; O2SAT 100
[2024-05-11 05:00] LABS: Basophils Absolute Auto 0.1 K/mm3 (0.0-0.1); Basophils Percent Auto 0.7 % (0.2-1.2); Eosinophils Absolute Auto 0.1 K/mm3 (0-0.3); Eosinophils Percent Auto 1.4 % (0-4.4); Hematocrit 40.3 % (37.0-47.0); Hemoglobin 13.3 g/dL (12.0-15.0); Immature Granulocyte Absolute 0.01 K/mm3 (0.00-0.031); Immature Granulocyte Percent A 0.1 % (0-0.5); Lymphocytes Absolute Auto 2.14 K/mm3 (0.9-3.2); Lymphocytes Percent Auto 29.1 % (18.3-44.2); Mean Corpuscular Hemoglobin 29.4 pg (26-34); Mean Platelet Volume 10.3 fl (7.4-10.4); Monocytes Absolute Auto 0.7 K/mm3 (0.1-0.6); Monocytes Percent Auto 10.1 % (2.6-8.5); Neutrophils Absolute Auto 4.3 K/mm3 (1.3-6.7); Neutrophils Percent Auto 58.6 % (45.5-73.1); Platelet Count Result 197 k/mm3 (150-375); Red Blood Count 4.53 M/mm3 (4.2-5.4); Red Cell Distribution Width 13.5 % (11.5-14.5); White Blood Count 7.4 K/mm3 (4.5-10.0)
[2024-05-11 05:10] LABS: Alanine Aminotransferase 24 U/L (6-35); Albumin Level 4.4 g/dL (3.5-5.1); Alkaline Phosphatase 117 U/L (38-126); Anion Gap 9 mmol/L (4-12); Aspartate Amino Transferase 29 U/L (14-36); Bilirubin,Total 0.7 mg/dL (0.2-1.3); Blood Urea Nitrogen 10 mg/dL (7-17); Calcium 9.3 mg/dL (8.4-10.2); Carbon Dioxide 31 mmol/L (22-30); Chloride 99 mmol/L (98-107); Estimated CRCL calculation 64 ml/min; Estimated Glomerular Filt Rate > 60; Glucose 139 mg/dL (65-110); Potassium 3.6 mmol/L (3.4-5.0); Sodium 139 mmol/L (137-145)
[2024-05-11 05:11] LABS: Partial Thromboplastin Time 27.2 Seconds (22.3-36.8); Prothrombin Time 13.7 Seconds (11.1-14.7)
[2024-05-11 05:15] LABS: D Dimer 0.46 ug/mL (<0.48)
[2024-05-11 05:19] LABS: NT Pro B Type Natriuretic Pept 68 pg/mL (19.9-100)
--- NOTE | 2024-05-11 05:48 | ED.EXTPRO ---
HPI - Extremity Problem General Chief complaint: Extremity Problem,Nontraumatic Stated complaint: left foot pain Time Seen by Provider: 05/11/24 05:13 Source: patient Limitations: no limitations History of Present Illness HPI Narrative: Patient is a 64-year-old female presents to the emergency department complaining of left foot and ankle pain over the past 2 days, started sporadically, hurts to the bear weight on it, denies any injuries, denies any history of injuries to this area in the past. Patient admits to a similar episode in her right foot and ankle in the past in which she does not know what caused it but she was given compression stockings in a hard sole shoe and kept elevating her legs in a overall got better. Patient denies history of gout. Patient denies fever, vomiting, numbness, weakness, history of blood clots. Patient admits to history of heart failure for which she takes water pills and she did take him today because she did want to have to have to ambulate a lot to the bathroom while she was having this discomfort. Patient denies alcohol use or illicit drug use. Patient admits to some mild associated swelling with the pain and it is also seems slightly warm and red. Patient denies a rapidly spreading rather it has not gotten better which is why she sought care. Patient has been keeping her legs elevated but has not been wearing compression stockings but has compression stockings to use. Related Data Home Medications Medication Instructions Recorded Confirmed aspirin 81 mg tablet,delayed 81 mg PO DAILY 11/27/19 04/20/24 release clonidine HCl 0.1 mg tablet 0.1 mg PO BID 11/27/19 04/20/24 diltiazem HCl 180 mg 180 mg PO DAILY 11/27/19 04/20/24 capsule,extended release 24 hr (Cartia XT) docusate sodium 100 mg capsule 100 mg PO DAILY 11/27/19 04/20/24 ferrous sulfate 325 mg (65 mg 325 mg PO DAILY 11/27/19 04/20/24 iron) tablet furosemide 40 mg tablet 40 mg PO QAM 11/27/19 04/20/24 hydrochlorothiazide 25 mg tablet 25 mg PO DAILY 11/27/19 04/20/24 lisinopril 40 mg tablet 40 mg PO DAILY 11/27/19 04/20/24 dllepkoy-jnir-epyb 8 mg-folic 400 1 tablet PO DAILY 11/27/19 04/20/24 mcg-K 50 mcg-lutein 300 mcg tablet (Centrum Silver Women) simvastatin 80 mg tablet 80 mg PO DAILY 11/27/19 04/20/24 cholecalciferol (vitamin D3) 125 125 mcg PO DAILY 04/29/23 04/20/24 mcg (5,000 unit) tablet (Vitamin D3) potassium chloride 20 mEq 20 meq PO DAILY 04/29/23 04/20/24 tablet,extended release(part/cryst) Allergies Allergy/AdvReac Type Severity Reaction Status Date / Time No Known Allergies Allergy Verified 04/20/24 14:12 Review of Systems Review of Systems: A 10 system review of systems was completed on the patient and is negative except for what is stated in the HPI. Nursing and ancillary documentation was reviewed. [facility] Past Medical History Medical History Congestive heart failure COPD (chronic obstructive pulmonary disease) Elevated lipids Family history of heart disease H/O gastroesophageal reflux (GERD) Hypertension Osteoarthritis of right knee Sleep apnea Stroke Surgical History Surgical History H/O total cystectomy History of knee surgery Family History Family History Mother Hypertension Sibling Hypertension Father Hypertension Other Acute myocardial infarction Family history of malignant neoplasm Social History Social History Smoking status: Never smoker Alcohol intake: current Alcohol use details: occasional Substance use: never Substance use type: does not use Living arrangements: with family Spiritual care concerns: No Comments At time of signature, I have reviewed and agree with nursing past medical, surgical, social and family
[2024-05-11 05:49] VITALS: BP 156/93; PULSE 69; RESP 20; O2SAT 99
[2024-05-11] MEDS: predniSONE 20 MG TABLET 40 MG PO (06:15)
[2024-05-11] MEDS: HYDROcodone/acetaminophen (*CRX) 5-325 MG TABLET 1 TAB PO (06:15)
[2024-05-11] MEDS: KETOROLAC 15 MG/ML VIAL (*BKC) IV PUSH (06:15)
[2024-05-11] MEDS: CEPHALEXIN 500 MG CAPSULE PO (06:16)
== END 2024-05-11 06:32 | disposition home or self-care (01) ==
PROVIDERS: Emergency Provider Student in an Organized Health Care Education/Training Program
DX: L03.116 Cellulitis of left lower limb (principal); J44.9 Chronic obstructive pulmonary disease, unspecified; I11.0 Hypertensive heart disease with heart failure; I50.9 Heart failure, unspecified
CPT/HCPCS: 36415; 73610; 73630; 80053; 83880; 85025; 85380; 85610; 85730; 93005; 96374; 99284; A9270; J1885; J7512

== ENCOUNTER 2024-11-06 14:34 | Outpatient (CLI) | payer MEDICARE, MEDICAID, SELFPAY ==
--- NOTE | ~2024-11-06 | MM_ITS ---
EXAMINATION: MM screening [facility] HISTORY: Screening TECHNIQUE: Craniocaudal and mediolateral oblique 3-D tomosynthesis images were obtained and synthetic 2-D images were generated. CAD analysis was submitted and interpreted. COMPARISON: Comparison to multiple prior studies sequentially, with oldest reviewed study dated 08/12. BREAST PARENCHYMAL COMPOSITION: Not dense: There are scattered areas of fibroglandular density. FINDINGS: There is no evidence of suspicious mass, calcification, or architectural distortion to sugg est malignancy in either breast. There has been no suspicious interval change. IMPRESSION: 1. No mammographic evidence of malignancy. 2. Recommend routine screening mammography in one year. BI-RADS Category 1: Negative Reviewed, dictated and finalized at location A. MAKER
--- OUTSIDE RECORDS SUMMARY | 2024-11-06 15:29 | XMS_ITS | Encounter Summary ---
Author Organization [facility] Care Team Providers Care Clay Structure Builder And Servicer Name Role Phone Porfirio Duvall MD Primary Care Provider [phone] T[place]ie, Physician Primary Care Provider [phone] Angela Monzon NP Primary Care Provider [phone] Encounter Details Date Type Department Care Team (Latest Contact Info) Description 04/06/2018 Orders Only [facility] ProviderCamilo MD [address] [place], [place] [id number] Social History Tobacco Use Types Packs/Day Years Used Date Smoking Tobacco: Never Assessed Comments Unknown Sex and Gender Information Value Date Recorded Sex Assigned at Not on file 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 Historical Provider [facility] Final Result * CARDIOLOGY REPORT (04/06/2018 12:00 AM CDT) Anatomical Region Laterality Modality Other Narrative 04/06/2018 12:00 AM CDT Ordered by an unspecified provider. us Historical Provider [facility]NA[facility] Final Result documented in this encounter Visit Diagnoses Not on filedocumented in this encounter Care Teams Clay Structure Builder And Servicer Relationship Specialty Start Date End Date Porfirio Duvall MD PCP - General Internal Medicine 08/10/19 03/31/22 No, Physician PCP - General 04/23/22 06/18/24 Angela Monzon NP [id number] [facility] [address] PCP - General Nurse Practitioner 06/19/24 documented as of this encounter
--- OUTSIDE RECORDS SUMMARY | 2024-11-06 15:29 | XMS_ITS | Clinical Summary ---
Author Organization [facility] Address [address] [place] [address]. 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 Gender Identity Not on file Sexual Orientation Not on file Plan of Treatment Health Maintenance Due Date Last Done Comments Cervical Cancer Screening Pap Smear (Age 30 to 64) Every 3 Years 1961 Colorectal Cancer Screening Colonoscopy (10 Years) 1961 Annual Physical 01/04/1964 Hepatitis C 1979 DTaP, Tdap and Td Vaccines (1 - Tdap) 01/04/1980 Cervical Cancer Screening Pap with HPV Testing (Age 30 to 64) Every 5 Years 1991 Cervical Cancer Screening with HPV 1991 Zoster Vaccines (1 of 2) 2011 Mammogram Screening 12/02/2023 12/02/2021 COVID-19 Vaccine ( - season) 2024 08/19/2021, 01/07/2021, 12/17/2020 Influenza Adult (#1) 2024 08/19/2021, 08/28/2020, 09/15/2018, Additional history exists RSV Immunization or 60+ Years (1 - 1-dose 75+ series) 01/04/2036 Pneumococcal Vaccine: Pediatrics (0 to 5 Years) and At-Risk Patients (6 to 64 Years) Aged Out 03/22/2017 No longer eligible based on patient's age to complete this topic Meningococcal Vaccine Aged Out No fatoumata kaila eligible based on patient's age to complete this topic RSV Immunizations Under 20 Months Aged Out No longer eligible based on patient's age to complete this topic Procedures Procedure Name Priority Date/Time Associated Diagnosis Comments MG SCREENING W KAVON LOVELY DIGI Routine 12/02/2021 12:14 PM ASSOCIATE BROKER Encounter for screening mammogram for malignant neoplasm of breast from Last 3 Months or Most Recently Relevant to Health Maintenance Results * MG SCREENING W KAVON LOVELY DIGI (12/02/2021 12:14 PM ASSOCIATE BROKER) Anatomical Region Laterality Modality Breast Bilateral Mammography 12/02/2021 1:17 PM ASSOCIATE BROKER Impressions 12/02/2021 1:17 PM ASSOCIATE BROKER =====IMPRESSION:===== No mammographic findings suggestive of malignancy ASSESSMENT: ACR BI-RADS 2 - BENIGN FINDING(S) Recommendation: 1: Routine Screening Bilateral COMMENTS: Ordered By: CLEMENT AYALA Interpreted By: Bon Lee MD, 12/02/2021 1:17 PM Narrative 12/02/2021 1:17 PM ASSOCIATE BROKER EXAMINATION: Digital bilateral screening mammogram with 3-D tomosynthesis EXAM DATE/TIME: 12/02/2021 11:52 AM REASON FOR EXAM: ??SCREENING ? COMPARISON: April 2021, October 2019 TECHNIQUE: Digital screening mammography of both breasts was performed in addition to 3-D Tomosynthesis technique. This study was read with the assistance of a computer-aided detection system. TISSUE DENSITY: There are scattered areas of fibroglandular density. FINDINGS: No suspicious masses, malignant appearing calcifications, skin thickening or other abnormalities are present. ??No significant change from the prior exam. Clement Ayala MD MAMMO Final Result from Last 3 Months or Most Recently Relevant to Health Maintenance Insurance [employer] A[employer] Care Teams Applications Manager Relationship Specialty Start Date End Date None, Provider, PCP - General 11/10/21
--- OUTSIDE RECORDS SUMMARY | 2024-11-06 15:29 | XMS_ITS | Referral Summary ---
Author Organization [facility] Address [address] [place] [address] Care Team Providers Care Soap Chipper Name Role Phone Angela Monzon NP Primary Care Provider + [phone] Allergies No known active allergies Medications aspirin 81 mg enteric coated tablet Take 1 tablet (81 mg total) by mouth daily Active dilTIAZem XR (CARDIZEM CD,DILACOR XR) 180 mg 24 hr capsule Take 1 capsule (180 mg total) by mouth daily Active folic acid/multivit-mi n/lutein (CENTRUM SILVER ORAL) Take by mouth Active cloNIDine (CATAPRES) 0.1 mg tablet Take 1 tablet (0.1 mg total) by mouth 2 (two) times a day Active docusate sodium (DOK) 100 mg tabletIndication s:constipation Take 1 tablet (100 mg total) by mouth 2 (two) times a day Active ferrous sulfate 325 mg (65 mg of elemental iron) tabletIndication s:Iron Deficiency Anemia Take 1 tablet (325 mg total) by mouth daily with breakfast Active furosemide (LASIX) 40 mg tablet Take 1 tablet (40 mg total) by mouth 2 (two) times a day Active hydroCHLOROthiaz david (HYDRODIURIL) 25 mg tablet Take 1 tablet (25 mg total) by mouth daily Active lisinopril (PRINIVIL,ZESTRI L) 40 mg tablet Take 1 tablet (40 mg total) by mouth daily Active potassium chloride ER (KLOR-CON) 20 mEq CR tablet Take 1 tablet (20 mEq total) by mouth 2 (two) times a day Active simvastatin (ZOCOR) 80 mg tablet Take 1 tablet (80 mg total) by mouth nightly Active cholecalciferol, vitamin D3, (VITAMIN D3 ORAL) Take by mouth Active omeprazole (PriLOSEC) 20 mg capsule Take 1 capsule (20 mg total) by mouth daily Active isosorbide mononitrate ER (IMDUR) 30 mg 24 hr tablet Take 1 tablet (30 mg total) by mouth daily Active nitroglycerin (NITROSTAT) 0.[address] 1 TABLET UNDER TONGUE EVERY 5 MINUTES NEEDED. MAX OF 3 TABLETS PER EPISODE Active Active Problems Problem Noted Date Diagnosed Date Chronic diastolic heart failure 02/28/2020 Obesity 03/16/2018 Atypical chest pain 03/13/2018 Edema of lower extremity 03/13/2018 Obstructive sleep apnea (adult) (pediatric) 10/13 Overview (09/11/2019): Continue CPAP therapy Assessment & Plan (11/23/2023 11:10 AM NURSING CLINICAL DIRECTOR): Patient continue to wear her CPAP at 16 cm water pressure while sleeping. Her DME is adapt. Assessment & Plan (11/17/2022 1:04 PM NURSING CLINICAL DIRECTOR): Patient continue to wear her CPAP at 16 cm water pressure while sleeping. Her DME is adapt. Dyslipidemia 09/13/2017 Essential hypertension 09/13/2017 Other secondary pulmonary hypertension 6 Cerebrovascular accident 01/30/2016 Congestive heart failure (CMS/HCC) 01/30/2016 Stress 01/30/2016 Immunizations Name Administration Dates Next Due Influenza, Quadrivalent, Split, Intramuscular Influenza, Quadrivalent, Spl it, Preservative Free, Intramuscular 09/15/2018 Pneumococcal Polysaccharide PPV23 03/22/2017 Social History Tobacco Use Types Packs/Day Years Used Date Smoking Tobacco: Never Passive Smoke Exposure: Yes Smokeless Tobacco: Never Tobacco Cessation:Counseling Given: Not Answered Personal Safety Answer Date Recorded Getting School Help Needed Not on file 09/21 Comments Unknown Sex and Gender Information Value Date Recorded Sex Assigned at Not on file Legal Sex Female 6:15 PM NURSING CLINICAL DIRECTOR Gender Identity Not on file Sexual Orientation Not on file Last Filed Vital Signs Vital Sign Reading Time Taken Comments Blood Pressure 134/77 06/19/2024 8:59 AM CDT Pulse 62 06/19/2024 8:59 AM CDT Temperature 36.3 ??C (97.3 ??F) 06/19/2024 8:59 AM CD T Respiratory Rate 18 06/19/2024 8:59 AM CDT Oxygen Saturation 98% 06/19/2024 8:59 AM CDT Inhaled Oxygen Concentration - - Weight 116.1 kg (256 lb) 06/19/2024 8:59 AM CDT Height 152.4 cm (5') 06/19/2024 8:59 AM CDT Body Mass Index 50 06/19/2024 8:59 AM CDT Plan of Treatment Not on file Insurance [facility] MEDICARE Care Teams Soap Chipper Relationship Specialty Start Date End Date Angela Monzon, SHERIDAN [facility] [place] [address] PCP - General Nurse Practitioner 06/19/24
--- OUTSIDE RECORDS SUMMARY | 2024-11-06 15:30 | XMS_ITS | Clinical Summary ---
Author Organization [facility] Address [address] [place] [address] Care Team Providers Care Grass Farmer Name Role Phone Angela Monzon NP Primary Care Provider + [phone] Allergies No known active allergies Medications aspirin [...] therapy Assessment & Plan (11/23/2023 11:10 AM WET TRIMMER): Patient continue to wear her CPAP at 16 cm water pressure while sleeping. Her DME is adapt. Assessment & Plan (11/17/2022 1:04 PM WET TRIMMER): Patient continue to wear her CPAP at 16 cm water pressure while sleeping. Her DME is adapt. Dyslipidemia 09/13/2017 Essential hypertension 09/13/2017 Other secondary pulmonary hypertension 6 Cerebrovascular accident 01/30/2016 Congestive heart failure (CMS/HCC) 01/30/2016 Stress 01/30/2016 Immunizations Name Administration Dates Next Due Influenza, Quadrivalent, Split, Intramuscular Influenza, Quadrivalent, Spl it, Preservative Free, Intramuscular 09/15/2018 Pneumococcal Polysaccharide PPV23 03/22/2017 Surgical History Surgery Date Site/Laterality Comments CARDIAC CATHETERIZATION 10/14/2023 Left Medical History Medical History Date Comments Hypertension Family History Medical History Relation Name Comments Dementia Mother Relation Name Status Comments Father Mother Alive Sister Social History Tobacco Use Types Packs/Day Years Used Date Smoking Tobacco: Never Passive Smoke Exposure: Yes Smokeless Tobacco: Never Tobacco Cessation:Counseling Given: Not Answered Personal Safety Answer Date Recorded Getting School Help Needed Not on file 09/21 Comments Unknown Sex and Gender Information Value Date Recorded Sex Assigned at Not on file Legal Sex Female 6:15 PM WET TRIMMER Gender Identity Not on file Sexual Orientation Not on file Obstetrics History Last Filed Vital Signs Vital Sign Reading [...] 06/19/2024 8:59 AM CDT Plan of Treatment Health Maintenance Due Date Last Done Comments Cervical Cancer Screening 1961 Colon Cancer Screening-Colonoscopy 1961 Depression Screening 1961 Hepatitis C Screening 1961 DTaP/Tdap/Td Vaccine (1 - Tdap) 01/04/1972 Hepatitis B Screening 1979 Regular Well Visit/Exam 18-64 1979 Zoster Vaccine (1 of 2) 2011 Pneumococcal vaccine <65 (2 of 2 - PCV) 03/22/2018 03/22/2017 Breast Cancer Screening-Mammogram 12/02/2022 12/02/2021, 12/02/2021, 12/02/2021 Influenza Vaccine (#1) 2024 09/15/2018, 2015 Insurance [employer] MEDICARE Care Teams Grass Farmer Relationship Specialty Start Date End Date Angela Monzon NP [facility] [address] PCP - General Nurse Practitioner 06/19/24
--- OUTSIDE RECORDS SUMMARY | 2024-11-06 15:30 | XMS_ITS | Clinical Summary ---
Author Organization [facility] [place] Address [address] [address] [place] [address] Care Team Providers Care Insurance Sales Manager Name Role Phone Unavailable Primary Care Provider Unavailabl e Allergies No known active allergies Medications aspirin (ECOTRIN EC) 81 mg Tablet, Delayed Release (E.C.) Take 81 mg by mouth daily. Active cloNIDine HCL (CATAPRES) 0.1 mg tablet Take 0.1 mg by mouth 2 times daily. Active diltiaZEM (CARDIZEM CD) 180 mg Controlled Delivery 24 hour capsule Take 180 mg by mouth daily. Active furosemide (LASIX) 40 mg tablet Take 40 mg by mouth daily. Active hydroCHLOROthiaz david 25 mg tablet Take 25 mg by mouth daily. Active isosorbide mononitrate (IMDUR) 30 mg Extended Release 24 hour tablet Take 30 mg by mouth daily in the morning. Active lisinopriL (PRINIVIL) 40 mg tablet Take 40 mg by mouth daily. Active nitroglycerin (NITROSTAT) 0.4 mg Tablet, Sublingual Place 0.4 mg under tongue every 5 minutes as needed for Chest Pain. Active omeprazole (PriLOSEC) 20 mg Capsule, Delayed Release(E.C.) Take 20 mg by mouth 1 time daily as needed. Active potassium chloride (KLOR-CON) 20 mEq Extended Release tablet Take 20 mEq by mouth daily. Active simvastatin (ZOCOR) 80 mg tablet Take 80 mg by mouth daily with supper. Active cholecalciferol, vitamin D3, 5,000 unit Take 400 Units by mouth daily. Active docusate sodium (COLACE) 100 mg capsule Take 100 mg by mouth daily. Active ferrous sulfate 325 mg (65 mg iron) tablet Take 325 mg by mouth daily. Active Active Problems Patient Care Coordination No te Formatting of this note migh t be different from the original. Stick Puller- Inocencio Buenrostro MD [place] [facility] No additional problems on file Encounters Date Type Department Care Team Description 11/02/2024 External Device Data [facility] ABSTRACTION Provider, Abstract 08/14/2024 External Device Data [facility] ABSTRACTION Provider, Abstract from Last 3 Months Family History Medical History Relation Name Comments Heart Attack Father Hypertension Father Hypertension Mother Diabetes Sister Hypertension Sister Relation Name Status Comments Father Mother Sister Social History Tobacco Use Types Packs/Day Years Used Date Smoking Tobacco: Never Alcohol Use Standard Drinks/Week Comments Yes 0 (1 standard drink = 0.6 oz pur e alcohol) special occasions Feeling Safe Answer Date Recorded Are you in a relationship wi th someone who hurts you emotionally and/or physically? No 10/08/2023 Comments No Sex and Gender Information Value Date Recorded Sex Assigned at Not on file Legal Sex Female 3:00 PM ASSISTANT SOFTBALL COACH Gender Identity Not on file Sexual Orientation Not on file Last Filed Vital Signs Vital Sign Reading Time Taken Comments Blood Pressure 125/77 10/14/2023 4:30 PM ASSISTANT SOFTBALL COACH Pulse 64 10/14/2023 4:30 PM ASSISTANT SOFTBALL COACH Temperature 36.2 ??C (97.1 ??F) 10/14/2023 11:[address] Respiratory Rate 18 10/14/2023 4:30 PM ASSISTANT SOFTBALL COACH Oxygen Saturation 95% 10/14/2023 4:30 PM ASSISTANT SOFTBALL COACH Inhaled Oxygen Concentration - - Weight 112.9 kg (249 lb) 10/14/2023 11:31 AM ASSISTANT SOFTBALL COACH Height 152.4 cm (5') 10/08/2023 2:45 PM ASSISTANT SOFTBALL COACH Body Mass Index 48.63 10/08/2023 2:45 PM ASSISTANT SOFTBALL COACH Plan of Treatment Health Maintenance Due Date Last Done Comments DTAP/TDAP/TD VACCINES (1 - Tdap) 01/04/1980 CERVICAL CANCER SCREENING 1991 COLORECTAL SCREENING 2006 Colorectal Cancer Screening 2006 FIT-DNA Q 3 years 2006 FIT/FOBT Q 1 year 2006 Flex Sig/CT Colonography Q 5 years 2006 ZOSTER VACCINE (1 of 2) 2011 PNEUMOCOCCAL VACCINE 0-64 YE ARS (2 of 2 - PCV) 03/22/2018 03/22/2017 BREAST CANCER SCREENING 12/02/2022 12/02/2021 INFLUENZA VACCINE (#1) 2024 09/15/2018, 2015 RSV VACCINE (60+ or ) (1 - 1-dose 75+ series) 01/04/2036 Medical Devices Implanted Type Area Glassware Defect Repairer Device Identifier Shelf Expiration Date Model / Serial / Lot Sealant Mynx Vasc Closure 5fr Vcd [id number] - [id number] Implanted:Qty: 1 on 10/14/2023 at [facility] Closure Device Right: Groin CORDIS 08/10/2025 [id number] / / [id number] Insurance MEDICARE PART A AND B MEDICAID [place] Advance Directives For more information, please contact: [phone] * Full Code (Latest Code Status on File) Date Activated Date Inactivated Comments 10/14/2023 10:46 AM 10/14/2023 7:06 PM
--- OUTSIDE RECORDS SUMMARY | 2024-11-06 15:30 | XMS_ITS | Encounter Summary ---
Author Organization [facility] Address [address] [place] [address] Care Team Providers Care Complaint Evaluation Officer Name Role Phone Unavailable Primary Care Provider Unavailabl e Encounter Details Date Type Department Care Team (Late st Contact Info) Description 11/02/2024 External Device Data [facility] ABSTRACTION Provider, Abstract NO ADDRESS ON FILE Social History Tobacco Use Types Packs/Day Years [...] on file Legal Sex Female 3:00 PM FORM GRADER OPERATOR Gender Identity Not on file Sexual Orientation Not on file documented as of this encounter Plan of Treatment Not on file documented as of this encounter Visit Diagnoses Not on filedocumented in this encounter
== END 2024-11-06 14:35 | disposition home or self-care (01) ==
LOC: ANHIMG 14:35
PROVIDERS: PCP Nurse Practitioner; Visit Provider Obstetrics & Gynecology
DX: Z12.31 Encounter for screening mammogram for malignant neoplasm of breast (principal)
CPT/HCPCS: 77063; 77067

== ENCOUNTER 2025-07-25 10:05 | Outpatient (CLI) | payer MEDICARE, MEDICAID, SELFPAY ==
--- NOTE | ~2025-07-25 | DEXA_ITS ---
Bone Density Report Name: ELIER MCCOY Age: 65 Sex: Female Ethnicity: Black Date of : 1960 Indication: postmenopausal; screening for osteoporosis; height loss; Referring Provider: FRED AYALA Study: Bone densitometry was performed. Exam Date: July 25, 2025 Accession number: [id number] Bone Density: Region BMD T-score Z-score Classification AP Spine(L1-L4) 0.872 -1.6 -0.6 Osteopenia Femoral Neck (Left) 0.708 -1.3 -0.4 Osteopenia Total Hip (Left) 1.162 1.8 1.8 Normal Femoral Neck (Right) 0.817 -0.3 0.3 Normal Total Hip (Right) 1.121 1.5 1.5 Normal Total Hip Mean 1.141 1.7 1.7 Normal World Health Organization criteria for BMD impression classify patients as: Normal (T-score at or above -1.0), Osteopenia (T-score between -1.0 and -2.5), or Osteoporosis (T-score at or below -2.5). 10-year Fracture Risk(1): Major Osteoporotic Fracture 3.0% Hip Fracture 0.2% Reported Risk Factors: [place] ([place]), Neck BMD=0.708, BMI=46.9 (1) FRAX(R) Version 3.08. Fracture probability calculated for an untreated patient. Fracture probability may be lower if the patient has received treatment. Previous Exams: Region Exam Age BMD T-score BMD Change BMD Change Date g/cm2 vs Baseline vs Previous AP Spine (L1-L4) 07/25/2025 65 0.872 -1.6 -0.119 (-12.0% -0.083 (-8.7%) 12/19/2019 59 0.956 -0.8 -0.036 (-3.6%) -0.031 (-3.1%) 11/02/2015 55 0.986 -0.6 -0.005 (-0.5%) -0.005 (-0.5%) 08/25/2013 53 0.992 -0.5 *Denotes significance at 95% confidence level, LSC for AP Spine = 0.022 g/cm2 # Denotes dissimilar scan types or analysis methods Clinical Information Provided by Patient: Has used the following medications: Vitamin D, Calcium Patient maximum height was 61 No regular weight bearing exercise Drinks caffeinated beverages Onset of menses at age 16 Number of children 1 Impression: The patient has low bone mass, based on the Total Spine T-score. The patient has an estimated ten-year risk of hip fracture of 0.2% and an estimated ten-year risk of major fracture of 3%, based on the WHO FRAX algorithm. The BMD for the AP Spine (L1-L4) decreased, changing by -8.7% since the last DXA exam. Discussion: BONE DENSITY IS LOW AT ONE OR MORE SKELETAL SITES. This patient's lowest T-score is low at one or more skeletal sites. It meets the World Health Organization's (WHO) criteria for ?low bone mass? (T-score between -1.0 and -2.5). The patient's 10-year risk of fracture as calculated by FRAX is less than the threshold where pharmacological therapy is recommended by the National Osteoporosis Foundation (NOF). However, all treatment decisions require clinical judgment and consideration of individual patient factors, including patient preferences, comorbidities, previous drug use, risk factors not captured in the FRAX model (e.g., frailty, falls, vitamin D deficiency, increased bone turnover, interval significant decline in bone density) and possible under or overestimation of fracture risk by FRAX. The patient should follow a healthful lifestyle (good nutrition with adequate calcium and vitamin D, and appropriate weight-bearing exercise). Follow-Up: Consider repeating this study in 2 years to reassess this patient's status, or sooner if there is some new clinical indication. Reported by: JOSUE on 07/25/2025 10:57:00 AM. Reviewed, dictated and finalized at location A.
--- OUTSIDE RECORDS SUMMARY | 2025-07-25 11:42 | XMS_ITS | Encounter Summary ---
Author Organization [facility] Care Team Providers Care Manager Risk Name Role Phone Porfirio Duvall MD Primary Care Provider [phone] [place], Physician Primary Care Provider [phone] Angela Monzon NP Primary Care Provider + [phone] Encounter Details Date Type Department Care Team (Latest Contact Info) Description 04/06/2018 Orders Only [facility] CLINCONV ProviderCamilo MD [address] [place], [place] [id number] Social History Tobacco Use Types Packs/Day Years Used Date Smoking Tobacco: Never Assessed Comments Unknown Sex and Gender Information Value Date Recorded Sex Assigned at Not on file Legal Sex Female 6:15 PM SPORTS INFORMATION DIRECTOR Gender Identity Not on file Sexual [...] on filedocumented in this encounter Care Teams Manager Risk Relationship Specialty Start Date End Date Porfirio Duvall MD PCP - General Internal Medicine 08/10/19 03/31/22 No, Physician PCP - General 04/23/22 06/18/24 Angela Monzon NP [address] [facility] [place] [address] PCP - General Nurse Practitioner 06/19/24 documented as of this encounter
--- OUTSIDE RECORDS SUMMARY | 2025-07-25 11:43 | XMS_ITS | Data Portability ---
Author Organization [place] - [facility] OFFICE Address [address] [place] [address] Care Team Providers Care Automated Logistics Specialist Name Role Phone MAGUE HURTADO Primary Care Provider [phone] Assessment No assessment recorded. Plan of Treatment Reminders Order Date Submit Date Provider Last Modified By Organization Details Last Modified Time Details Appointments ESTABLISH ED PATIENT DETAILED 2025 10:15A M Inocencio Owen i, MD Not available Not available Not available Lab None recorded. Referral None recorded. Procedures None recorded. Surgeries None recorded. Imaging None recorded. Medication Orders None recorded. Patient TargetsNo targets recorded. Patient Instructions Encounter Date Encounter Id Patient Instructions Last Modified By Organization Details Last Modified Time 09/28/2023 [id number] Weight loss 20 pounds Exercise advised Low cholesterol diet advised Low sodium diet advised. [email or web address] Not available 09/28/2023 10:22:46 11/14/2024 [id number] Weight loss 20 pounds Exercise advised Low cholesterol diet advised Low sodium diet advised. [email or web address] Not available 11/14/2024 18:37:44 Reason for Referral None Reported. Results Created Date Observation Date Name Description Value Unit Range Abnormal Flag Note LastModifiedBy Organization Detail LastModifiedTime 09/08/20 23 09/01/2023 exerc ise stres s test No observ ation record ed. [email or web address] Not Available 2022 12:20:42 10/23/19 24 10/14/[address] ment for coron jose angio graph y with left heart michelle teriz ation inclu ding intra proce dural injec tion( s) for left ventr iculo graph y w/ michelle ter place ment in bypas s graft (s) (PROC ) No observ ation record ed. [email or web address] Not Available 2023 12:50:34 04/18/20 24 04/18/2024 elect rocar diogr am No observ ation record ed. [email or web address] Not Available 2023 13:03:35 05/25/20 24 05/18/2024 US, echoc ardio gram No observ ation record ed. [email or web address] Not Available 2024 11:21:53 11/15/19 25 11/14/2024 elect rocar diogr am No observ ation record ed. [email or web address] Not Available 2024 12:20:51 05/31/20 25 05/29/2025 elect rocar diogr am No observ ation record ed. [email or web address] Not Available 2024 15:17:44 Result Notes Documentation Provider Name and Address Organization Details Recorded Time Cmp, Serum Or Plasma : 05/25/25:Na 143,K 3.6,CL 100,CO2 26,GLU 107,BUN 19,Cr 0.94,AST 16,ALT 16 Chris myers [place] - [facility] 05/27/2025 14:22:00 Lipid Panel, Blood : 05/25/25:Na 143,K 3.6,CL 100,CO2 26,GLU 107,BUN 19,Cr 0.94,AST 16,ALT 16,CK 99. 05/25/25:TC 132,TG 82,HDL 44,LDL 72. Chris myers [place] - [facility] 05/27/2025 14:22:55 Problems Name Problem SNOMED Code Status Onset Date Resolution Date Notes Provider Name and Address Organization Details Recorded Time Benign hyperten brit 75383857 Completed 201509/13/2017 Liliam myers [place] - [facility] 7 09:52:57 Hyperlip idemia 28544191 Completed 201509/13/2017 Liliam myers [place] - [facility] 7 09:53:07 Congesti ve heart failure 46887603 Active 2015 with diastolic left ventricul ar dysfuncti on Chris myers [place] - [facility] 3 09:19:50 Sleep apnea 27496958 Active 2015 Chris Moreno [facility] 3 09:20:02 Cerebrov ascular accident 273837712 Active [address] with possible old cerevascu lar accident Delia Figueroa [facility] 6 15:02:01 Stress 63102506 Active 2015 Delia Figueroa [facility] 6 15:02:09 [facility] hyperten brit 24153454 Active 2016 Liliam Trevino [facility] 7 09:53:03 Dyslipid emia 347852771 Active 2016 LDL 94 Zoey Devante [facility] 8 21:55:15 Edema of lower extremit y 633998602 Active 2017 Perezreginaldo Moreno [facility] 8 14:27:43 Atypical chest pain 194042507 Active 2017 Perez [facility] 8 14:28:01 Obesity 223937268 Active 2017 Zoey Low [facility] 8 14:11:04 Dyspnea on exertion 89650870 Active 2018 Hadley Bravo [facility] 9 12:38:04 Chronic diastoli c heart failure 884966355 Active 2019 Perez [facility] 3 09:19:44 Notes:Some problems listed i n Documents: #[id number], #[id number] could not be added to this patient's chart. Please review these documents and add these problems to the patient's chart manually as needed. Problem Notes None recorded. Procedures Surgical History Date Name Laterality Status Provider Name and Address Organization Details Recorded Time Knee arthroscopy /surgery completed Chris Moreno [facility] 06/02/2016 17:23:29 Imaging Results None recorded. Procedure Notes None recorded. Medical Equipment None Reported. Allergies No known drug allergies Medications Name Sig Start Date Stop Date Status Note LastModified by Organization Details LastModified Time cyclobenzap rine hydrochlori de 10 mg tabs 09/14 completed Not Available Not Available Not Available furosemide 40 mg tabs once a day 08/14 completed Not Available Not Available Not Available lisinopril 40 mg tabs once a day 08/14 completed Not Available Not Available Not Available omeprazole dr 20 mg cpdr 11/14 completed Not Available Not Available Not Available diltiazem hcl er 180 mg cp24 06/04 completed Not Available Not Available Not Available hydrochloro thiazide 25 mg tabs 08/14 completed Not Available Not Available Not Available simvastatin 20 mg tabs 06/04 completed Not Available Not Available Not Available clonidine hcl 0.1 mg tabs twice a day 08/14 completed Not Available Not Available Not Available diltiazem hydrochlori de er 180 mg cp24 09/14 completed Not Available Not Available Not Available azithromyci n 250 mg tabs 09/13 completed Not Available Not Available Not Available cartia xt 180 mg cp24 once a day 02/13 completed Not Available Not Available Not Available simvastatin 40 mg tabs once daily 11/28 completed Not Available Not Available Not Available cyclobenzap rine hcl 10 mg tabs 09/13 completed Not Available Not Available Not Available simvastatin 80 mg tabs 08/14 completed Not Available Not Available Not Available potassium chloride er 20 meq tbcr once a day 08/14 completed Not Available Not Available Not Available prednisone 20 mg tabs 09/13 completed Not Available Not Available Not Available cyclobenzap rine 10 mg tablet 08/14 completed Not Available Not Available Not Available furosemide 40 mg tablet TAKE 1 TABLET BY MOUTH EVERY MORNING active Not Available Not Available No t Available clonidine HCl 0.1 mg tablet TAKE 1 TABLET BY MOUTH TWICE DAILY active Not Available Not Available No t Available prednisone 10 mg tablet 11/14 completed Not Available Not Available Not Available diltiazem CD 180 mg capsule,ext ended release 24 hr TAKE 1 CAPSULE BY MOUTH EVERY DAY active Not Available Not Available No t Available hydrocodone 5 mg-acetamin ophen 325 mg tablet 11/14 completed Not Available Not Available Not Available isosorbide mononitrate ER 30 mg tablet,exte nded release 24 hr TAKE 1 TABLET BY MOUTH EVERY DAY active Not Available Not Available No t Available Doc-Q-Lace 100 mg capsule Take 1 capsule every day by oral route. 05/26 completed Not Available Not Available Not Available acetaminoph en 300 mg-codeine 30 mg tablet TAKE 1 TABLET BY MOUTH EVERY 6 HOURS NEEDED FOR SEVERE PAIN active Not Available Not Available No t Available simvastatin 80 mg tablet TAKE 1 TABLET BY MOUTH EVERY DAY AT BEDTIME active Not Available Not Available No t Available amoxicillin 500 mg tablet TAKE 1 TABLET BY MOUTH THREE TIMES DAILY FOR 7 DAYS active Not Available Not Available No t Available simvastatin 40 mg tablet Take 1 tablet every day by oral route. 09/14 completed Not Available Not Available Not Available potassium chloride ER 20 mEq tablet,exte nded release(par t/cryst) TAKE 1 TABLET BY MOUTH EVERY DAY active Not Available Not Available No t Available cephalexin 500 mg capsule TAKE 1 CAPSULE BY MOUTH EVERY 6 HOURS FOR 6 DAYS 11/14 completed Not Available Not Available Not Available simvastatin 20 mg tablet TAKE 1 TABLET BY MOUTH WITH EVENING MEAL DAILY 03/17 completed Not Available Not Available Not Available ibuprofen 400 mg tablet TAKE 1 TABLET BY MOUTH EVERY 6 HOURS NEEDED FOR PAIN 11/14 completed Not Available Not Available Not Available indomethaci n 50 mg capsule TAKE 1 CAPSULE BY MOUTH THREE TIMES DAILY DIRECTED active Not Available Not Available No t Available nitroglycer in 0.[address] 1 TABLET UNDER TONGUE EVERY 5 MINUTES NEEDED. MAX OF 3 TABLETS PER EPISODE active Not Available Not Available No t Available omeprazole 20 mg capsule,del ayed release TAKE 1 CAPSULE BY MOUTH EVERY DAY active Not Available Not Available No t Available hydrochloro thiazide 25 mg tablet TAKE 1 TABLET BY MOUTH EVERY DAY active Not Available Not Available No t Available lisinopril 40 mg tablet TAKE 1 TABLET BY MOUTH EVERY DAY active Not Available Not Available No t Available nitrofurant oin monohydrate /macrocryst als 100 mg capsule TAKE 1 CAPSULE BY MOUTH EVERY 12 HOURS FOR 5 DAYS 11/14 completed Not Available Not Available Not Available chlorhexidi ne gluconate 0.12 % mouthwash SWSIH 5-10 ML BY MOUTH FOR 45-60 SECONDS AND SPIT TWICE DAILY FOR 14 DAYS active Not Available Not Available No t Available ferrous sulfate 05/26 completed Not Available Not Available Not Available hydrochloro thiazide 25 mg 1 each once a day 06/04 completed Not Available Not Available Not Available Centrum Silver qd 08/15 completed Not Available Not Available Not Available Aspirin Low Strength 81 mg 1 each once a day 08/15 completed Not Available Not Available Not Available Centrum 05/26 completed Not Available Not Available Not Available Cartia XT 08/15 completed Not Available Not Available Not Available Calcium Citrate + D bid 03/17 completed Not Available Not Available Not Available Vitamin D3 125 mcg (5,000 unit) tablet Take 1 tablet every day by oral route as directed. active Not Available Not Available No t Available sodium,pota ssium,mag sulfates 17.5 gram-3.13 gram-1.6 gram oral soln MIX AND DRINK DIRECTED 09/28 completed Not Available Not Available Not Available Vitamin D3 50 mcg (2,000 unit) capsule qd 06/04 completed Not Available Not Available Not Available Adult Aspirin Regimen 81 mg tablet,alex yed release Take 1 tablet every day by oral route. active Not Available Not Available No t Available Afluria Qd (36 mos up)(PF)60 mcg (15 mcg x4)/0.5 mL IM syringe ADM 0.5ML IM UTD 12/30 completed Not Available Not Available Not Available Vitals Date Recorded Systolic And Diastolic Provider Name and Address Organization Details Last Updated DateTime 10/23/2023 118/60 mm[Hg] Inocencio Buenrostro MD [address] [place], [address], [facility] 10/23/2023 10:47:12 Date Recorded Body height Body mass index (BMI) Body weight Heart rate Oxygen saturation Oxygen saturation in Arterial blood by Pulse oximetry Provider Name and Address Organization Details Last Updated DateTime 4 152.4 cm 49.4 kg/m2 433826. 87 g 69 /min 91 % 91 % Belen Bender [facility] 10:15:24 Date Recorded Body height Body mass index (BMI) Body weight Heart rate Oxygen saturation Oxygen saturation in Arterial blood by Pulse oximetry Systolic And Diastolic Provider Name and Address Organization Details Last Updated DateTime 5 152.4 cm 49.6 kg/m2 661387. 46 g 61 /min 96 % 96 % 126/84 mm[Hg] Belen Bender [facility] 5 18:21:31 Date Recorded Body height Body mass index (BMI) Body weight Heart rate Oxygen saturation Oxygen saturation in Arterial blood by Pulse oximetry Systolic And Diastolic Provider Name and Address Organization Details Last Updated DateTime 4 152.4 cm 50 kg/m2 383893. 65 g 60 /min 97 % 97 % 112/62 mm[Hg] Alia Clark [facility] 4 10:20:09 Date Recorded Body height Body mass index (BMI) Body weight Heart rate Oxygen saturation Oxygen saturation in Arterial blood by Pulse oximetry Systolic And Diastolic Provider Name and Address Organization Details Last Updated DateTime 5 152.4 cm 48.8 kg/m2 486851. 09 g 88 /min 93 % 93 % 114/74 mm[Hg] Norah Key [facility] 5 13:59:08 Date Recorded Body height Body mass index (BMI) Body weight Oxygen saturation Oxygen saturation in Arterial blood by Pulse oximetry Heart rate Systolic And Diastolic Provider Name and Address Organization Details Last Updated DateTime 3 152.4 cm 48.6 kg/m2 396748. 5 g 97 % 97 % 65 /min 114/64 mm[Hg] Alia Eduardo [facility] 3 10:07:47 Social History Question Answer Notes LastModified by Organizat ion Details LastModified Time Tobacco Smoking Status Never Smoker Chris myers [facility] 06/02/2016 17:24:54 What Is Your Level Of Caffeine Consumption? Occasional [email or web address] Information not available 06/15/2018 How Much Tobacco Do You Chew? None [email or web address] Information not available 06/15/2018 What Type Of Diet Are You Following? REGULAR [email or web address] Information not available 06/15/2018 Which Illicit Or Recreational Drugs Have You Used? No [email or web address] Information not available 06/15/2018 Live Alone Or With Others? With Others [email or web address] Information not available 06/15/2018 Marital Status Unknown [email or web address] Informatio n not available 06/15/2018 What Was The Date Of Your Most Recent Tobacco Screening? 11/28/2018 Information not available 05/04/2019 How Much Tobacco Do You Smoke? No [email or web address] Information not available 06/15/2018 General Stress Level Medium [email or web address] Information not available 06/15/2018 How Many Years Have You Smoked Tobacco? 0 Information not available 09/10/2017 Sex: Unknown Functional Status Question Answer Note LastModified by Organizat ion Details LastModified Time What is your level of alcohol consumption? None Information not available 06/15/2018 Do you or have you ever used smokeless tobacco? Never used smokeless tobacco Information not available 02/24/2021 Do you or have you ever used e-cigarettes or vape? Never used electronic cigarettes Information not available 02/24/2021 What is your exercise level? Occasional [email or web address] Information not available 06/15/2018 Mental Status None recorded. Family History Relationship Description Onset Age of this Age Resolved Age Notes LastModified by Organization Details LastModified Time Mother Essential hypertension [email or web address] Not available 17:24:08 Father Essential hypertension [email or web address] Not available 17:24:16 Father Myocardial infarction [email or web address] Not available 06/02 17:24:29 Sister Diabetes mellitus [email or web address] Not available 2015 17:24:44 Sister Essential hypertension hmesto Not available 17:24:50 Medical History Condition Response Congestive Heart Failure (CHF) Y Hyperlipidemia Y Stroke Y Sleep Apnea Y Hypertension Y Gynecological HistoryNo gynecological history recorded. Obstetrics History GPAL:G 0 P 0 0 0 0 Past Encounters Encounter ID Performer Location Encounter Start Date Encounter Closed Date Diagnosis/Indication Diagnosis SNOMED-CT Code Diagnosis ICD10 Code Diagnosis IMO Codes Diagnosis Note [id number] MD Yovany Driver Office [address] [place] [address] 06/04/2016 10:23:01 06/05/2016 13:13:31 Electrocardiogram abnormal 695449905 R94.31 Hyperlipidemia 86825547 E78.5 Needs to keep LDL less than 70, and HDL more than 40 Atypical chest pain 1025 50698 R07.89 Treadmill Myoview Stress test, has high Hanover Risk score. Has Known CAD, or CAD risk equivalent . To look for any ischemia. [id number] MD Yovany Driver Office [address] [place] [address] 08/31/2016 11:29:31 09/01/2016 17:14:51 Dyspnea 892021111 R06.00 with diastolic CHF Hyperlipidemia 76325914 E78.5 Needs to keep LDL less than 70, and HDL more than 40 Atypical chest pain 1025 83557 R07.89 Treadmill Myoview Stress test was negative Electrocar diogram abnormal 430092307 R94.31 [id number] MD Yovany Rg Office [address] [place] [address] 03/17/2017 14:06:26 03/18/2017 12:26:08 Dyspnea on exertion 80780851 R06.09 Dyspnea 993864208 R06.00 with diastolic CHF Hyperlipidemia 48482641 E78.5 Needs to keep LDL less than 70, and HDL more than 40incerese Zocor to 40 QHS. Electrocar diogram abnormal 670484418 R94.31 Atypical chest pain 1025 71660 R07.89 Treadmill Myoview Stress test was negative [id number] MD Yovany Driver Office [address] [place] [address] 09/13/2017 12:30:44 09/15/2017 11:28:05 Essential hypertension 99886633 I10 Dyspnea on exertion 6084 5006 R06.09 Dyspnea 399041924 R06.00 with diastolic CHF Hyperlipidemia 71248572 E78.5 Needs to keep LDL less than 70, and HDL more than 40increase Zocor to 40 QHS. Electrocar diogram abnormal 851299408 R94.31 Atypical chest pain 1025 98447 R07.89 Treadmill Myoview Stress test was negative Edema of l ower extremity 124365418 R60.0 Venous duplex and reflux studyCompr ession stockings trial [id number] Inocencio Buenrostro MD [place] OFFICE [address] [place] [address] 11/26/2017 12:55:34 11/29/2017 09:05:01 Essential hypertension 97552096 I10 Dyspnea on exertion 6084 5006 R06.09 Dyspnea 804488071 R06.00 with diastolic CHF, WITH lvh Hyperlipidemia 21102978 E78.5 Needs to keep LDL less than 70, and HDL more than 40increase Zocor to 40 QHS. Electrocar diogram abnormal 223628558 R94.31 Atypical chest pain 1025 27012 R07.89 Treadmill Myoview Stress test was negative Edema of l ower extremity 444376815 R60.0 Venous duplex and reflux study showed mildCompre ssion stockings trial [id number] MD Yovany Driver e Office [address] [place] [address] 03/16/2018 13:34:05 03/16/2018 14:24:44 Essential hypertension 82608578 I10 Well controlled on current regimen. Continue. Dyspnea on exertion 6084 5006 R06.09 Stable.Wit h diastolic CHF with LVH. Hyperlipidemia 47467470 E78.5 Needs to keep LDL less than 70, and HDL more than LDL 94 Continue Simvastati n. Atypical chest pain 1025 70158 R07.89 Improved.T readmill Myoview Stress test was negative Edema of l ower extremity 717694942 R60.0 Venous duplex and reflux study showed mild disease.Co mpression stockings trialSalt reduction and leg elevation advised. Obesity 986956448 E66.9 20 lb. weight loss recommende d over the next 2 months. Benign ess ential hypertension 6462584 I10 [id number] MD Yovany Rg e Office [address] [place] [address] 06/15/2018 13:52:04 06/15/2018 14:58:06 Essential hypertension 09361211 I10 Well controlled on current regimen. Continue. Dyspnea on exertion 6084 5006 R06.09 Stable.Wit h diastolic CHF with LVH.Contin ue maximal medical treatment and risk factor modificati on Hyperlipidemia 18055611 E78.5 Needs to keep LDL less than 70, and HDL more than LDL 94Obtain repeat FLP. Continue Simvastati n. Atypical chest pain 1025 61151 R07.89 Improved.T readmill Myoview Stress test was negative Edema of l ower extremity 904661101 R60.0 Venous duplex and reflux study showed mild disease.Co mpression stockings trialSalt reduction and leg elevation advised. Obesity 683745385 E66.9 20 lb. weight loss recommende d over the next 2 months. [id number] MD Yovany Driver Office [address] [place] [address] 10/19/2018 13:55:31 10/19/2018 14:31:06 Essential hypertension 56500273 I10 Well controlled on current regimen. Continue. Dyspnea on exertion 6084 5006 R06.09 Stable.Wit h diastolic CHF with LVH.Contin ue maximal medical treatment and risk factor modificati on Hyperlipidemia 44939158 E78.5 Needs to keep LDL less than 70, and HDL more than LDL 94Obtain repeat FLP. Continue Simvastati n. Atypical chest pain 1025 45125 R07.89 Treadmill Myoview Stress test, has high Hanover Risk score. Has Known CAD, or CAD risk equivalent . To look for any ischemia. Edema of l ower extremity 364310002 R60.0 Venous duplex and reflux study showed mild disease.Co mpression stockings trialSalt reduction and leg elevation advised. Obesity 437715884 E66.9 20 lb. weight loss recommende d over the next 2 months. [id number] MD Yovany Carson Office [address] [place] [address] 11/14/2018 10:36:00 11/14/2018 12:31:34 Dyslipidemia 195392415 E78.5 Patient's hyperlipid emia is well-contr olled on present medical therapy. Patient is tolerating , without difficulty , the current medication s. I have not made c heck lipids changes to the current regimen. Cont low cholestero l diet. Essential hypertension 69832944 I10 Well controlled on current regimen. Continue. Dyspnea on exertion 6084 5006 R06.09 With diastolic CHF with LVH.Contin ue maximal medical treatment and risk factor modificati onPatient presents with SLATER and positive stress test. . Given the history, exam findings andinterme diatecardi ac risk factors, Ifeeladdit ional investigat ion is warranted. I have made arrangemen ts in the near future forcoronar y CTA. The procedure was discussed with the patient, and risks, benefits, and alternativ e options were explained. Appropriat e labworkhas bo performed recently, therefore Ihpraneethmade kristina ts for further testing. I have asked the patient to curtail exercise and activities until our investigat ion is complete. I havemade the followinga djustments to the present medical regimen.pt was advised to present to closest ER if her symptoms would get worse [id number] MD Y[facility] Driver Office [address] [place] [address] 11/28/2018 09:29:07 11/28/2018 10:58:52 Dyslipidemia 003477229 E78.5 Patient's hyperlipid emia is well-contr olled on present medical therapy. Patient is tolerating , without difficulty , the current medication s. I have not made c heck lipids changes to the current regimen. Cont low cholestero l diet. Essential hypertension 17873452 I10 Well controlled on current regimen. Continue. Dyspnea on exertion 6084 5006 R06.09 Hyperlipidemia 22200177 E78.5 Needs to keep LDL less than 70, and HDL more than LDL 94Obtain repeat FLP. Continue Simvastati n. [id number] MD Yovany Driver Office [address] [place] [address] 02/13/2019 10:01:45 02/13/2019 11:12:48 Dyslipidemia 747828863 E78.5 Patient's hyperlipid emia is well-contr olled on present medical therapy. Patient is tolerating , without difficulty , the current medication s. I have not made c heck lipids changes to the current regimen. Cont low cholestero l diet. Essential hypertension 56203473 I10 Well controlled on current regimen. Continue. Dyspnea on exertion 6084 5006 R06.09 Chronic di astolic heart failure 523313264 I50.32 [id number] MD Yovany Driver Office [address] [place] [address] 08/28/2019 10:28:40 08/28/2019 11:15:49 Dyslipidemia 616959543 E78.5 Patient's hyperlipid emia is well-contr olled on present medical therapy. Patient is tolerating , without difficulty , the current medication s. I have not made c heck lipids changes to the current regimen. Cont low cholestero l diet. Essential hypertension 22194726 I10 Well controlled on current regimen. Continue. Chronic di astolic heart failure 690035301 I50.32 well compensate d on current dose of Lasix Hyperlipidemia 70783024 E78.5 Repeat lipid profile before next visit .Continue Simvastati n. [id number] Inocencio Buenrostro MD [place] OFFICE [address] [place] [address] 03/01/2020 12:05:48 03/01/2020 14:10:31 Dyslipidemia 957679537 E78.5 Patient's hyperlipid emia is well-contr olled on present medical therapy. Patient is tolerating , without difficulty , the current medication s. I have not changes to the current regimen. Cont low cholestero l diet. WIll order fasting lipids for follow up. Essential hypertension 66682372 I10 Well controlled on current regimen. Continue. Chronic di astolic heart failure 723435145 I50.32 well compensate d on current dose of Lasix Hyperlipidemia 33367068 E78.5 Repeat lipid profile before next visit .Continue Simvastati n. Dyspnea on exertion 6084 5006 R06.09 Edema of l ower extremity 200380830 R60.0 Venous duplex and reflux study showed mild disease.Co mpression stockings trialSalt reduction and leg elevation advised. Benign hypertension 1072 5009 I10 Hypokalemia 89928963 E87 .6 [id number] MD [facility] [address] [place] [address] 08/28/2020 14:47:41 08/28/2020 15:29:04 Dyslipidemia 751959998 E78.5 Needs to keep LDL less than 70, and HDL more than 40. 020 LDL 93Continue simvastati n 80mgWill get fasting lipids for follow-up Essential hypertension 26345206 I10 Well controlled on current regimen Chronic di astolic heart failure 498437542 I50.32 Seems to be well compensate d, appears euvolemic. Echo 10/26/2017 : LV chamber size is normal. There is normal global systolic function and contractil ity. The estimated left ventricle ejection fraction is 55-60%(nor mal). Mitral valve prolapse cannot be ruled out. There is mild mitral regurgitat ion. There is mild tricuspid regurgitat ion. Estimated RVSP is 35 mmHg. Dyspnea on exertion 6084 5006 R06.09 Stable, unchanged. Edema of l ower extremity 905053121 R60.0 Venous reflux 10/26/2017 : Mild bilateral reflux disease noted.Veno us doppler 10/26/2017 : Negative bilateral venous study.Comp ression stockings trialConti nue Lasix, leg elevation, and low salt diet. [id number] MD Yovany Driver e Office [address] [place] [address] 02/26/2021 14:46:18 02/26/2021 15:19:00 Dyslipidemia 856198869 E78.5 Needs to keep LDL less than 70, and HDL more than 40. 02/27/2020 LDL 93 Continue simvastati n 80 mg Will get fasting lipids for follow-up Essential hypertension 81386463 I10 Well controlled on current regimen Chronic di astolic heart failure 788844817 I50.32 Seems to be well compensate d, appears euvolemic. Echo 10/26/2017 : LV chamber size is normal. There is normal global systolic function and contractil ity. The estimated left ventricle ejection fraction is 55-60%(nor mal). Mitral valve prolapse cannot be ruled out. There is mild mitral regurgitat ion. There is mild tricuspid regurgitat ion. Estimated RVSP is 35 mmHg. Dyspnea on exertion 6084 5006 R06.09 Stable, unchanged. Edema of l ower extremity 595364335 R60.0 Venous reflux 10/26/2017 : Mild bilateral reflux disease noted. Venous doppler 10/26/2017 : Negative bilateral venous study. Will repeat echo Continue Lasix, leg elevation, and low salt diet. Atypical chest pain 1025 27329 R07.89 Resolved Cardiac CTA 11/21/2018 : Mild coronary artery disease. Sleep apnea 48968750 G47 .30 Compliant with nightly CPAP use [id number] MD Yovany Driver [facility] [address] [place] [address] 08/27/2021 14:48:35 08/27/2021 15:27:45 Atypical chest pain 210531908 R07.89 Resolved Cardiac CTA 11/21/2018 : Mild coronary artery disease. Dyslipidemia 860837739 E 78.5 Needs to keep LDL less than 70, and HDL more than 40. 02/27/2020 LDL 93 Continue simvastati n 80 mg Will get fasting lipids for follow-up Essential hypertension 16339264 I10 Well controlled on current regimen Chronic di astolic heart failure 476215405 I50.32 Seems to be well compensate d, appears euvolemic. Obtain echo to evaluate for structural /functiona l disease. Dyspnea on exertion 6084 5006 R06.09 Stable, unchanged. Edema of l ower extremity 596888546 R60.0 Venous reflux 10/26/2017 : Mild bilateral reflux disease noted. Venous doppler 10/26/2017 : Negative bilateral venous study. Will repeat echo Continue Lasix, leg elevation, and low salt diet. Sleep apnea 41554871 G47 .30 Compliant with nightly CPAP use [id number] MD Yovany Driver [facility] [address] [place] [address] 02/09/2022 11:04:30 02/09/2022 11:54:47 Atypical chest pain 815974063 R07.89 Resolved Cardiac CTA 11/21/2018 : Mild coronary artery disease. Dyslipidemia 861171468 E 78.5 Needs to keep LDL less than 70, and HDL more than 40. 02/27/2020 LDL 93 Continue simvastati n 80 mg Will get fasting lipids for follow-up Essential hypertension 82609616 I10 Well controlled on current regimen Chronic di astolic heart failure 789090063 I50.32 Seems to be well compensate d, appears euvolemic. Obtain echo to evaluate for structural /functiona l disease. Dyspnea on exertion 6084 5006 R06.09 Stable, unchanged. Edema of l ower extremity 080148787 R60.0 Venous reflux 10/26/2017 : Mild bilateral reflux disease noted. Venous doppler 10/26/2017 : Negative bilateral venous study. Will repeat echo Continue Lasix, leg elevation, and low salt diet.Obtai n echo to evaluate for structural /functiona l disease. Sleep apnea 31211240 G47 .30 Compliant with nightly CPAP use [id number] MD Yovany Driver [facility] [address] [place] [address] 07/27/2022 11:54:36 07/27/2022 12:32:53 Atypical chest pain 682784443 R07.89 Resolved Cardiac CTA 11/21/2018 : Mild coronary artery disease. Dyslipidemia 481320244 E 78.5 Needs to keep LDL less than 70, and HDL more than 40. 02/27/2020 LDL 93 Continue simvastati n 80 mg Will get fasting lipids for follow-up Essential hypertension 19178182 I10 Well controlled on current regimen Chronic di astolic heart failure 255822816 I50.32 Seems to be well compensate d, appears euvolemic. Normal Left ventricula r systolic function Dyspnea on exertion 6084 5006 R06.09 Stable, unchanged. Edema of l ower extremity 673492467 R60.0 Venous reflux 10/26/2017 : Mild bilateral reflux disease noted. Venous doppler 10/26/2017 : Negative bilateral venous study. Will repeat echo Continue Lasix, leg elevation, and low salt diet.Obtai n echo to evaluate for structural /functiona l disease. Sleep apnea 90129352 G47 .30 Compliant with nightly CPAP use [id number] Inocencio Buenrostro MD [place] [facility] [address] [place] [address] 02/01/2023 11:46:01 02/01/2023 12:32:12 Atypical chest pain 535905556 R07.89 Resolved Cardiac CTA 11/21/2018 : Mild coronary artery disease. Dyslipidemia 753000477 E 78.5 Needs to keep LDL less than 70, and HDL more than 40. 02/27/2020 LDL 93 Continue simvastati n 80 mg Will get fasting lipids for follow-up Essential hypertension 43304073 I10 Well controlled on current regimen Chronic di astolic heart failure 052403966 I50.32 Seems to be well compensate d, appears euvolemic. Normal Left ventricula r systolic function Dyspnea on exertion 6084 5006 R06.09 Stable, unchanged. Edema of l ower extremity 587574468 R60.0 Venous reflux 10/26/2017 : Mild bilateral reflux disease noted. Venous doppler 10/26/2017 : Negative bilateral venous study. Will repeat echo Continue Lasix, leg elevation, and low salt diet.Obtai n echo to evaluate for structural /functiona l disease. Sleep apnea 09004736 G47 .30 Compliant with nightly CPAP use [id number] Inocencio Buenrostro MD [place] [facility] [address] [place] [address] 08/19/2023 11:36:00 08/19/2023 13:02:45 Dyslipidemia 606054340 E78.5 Needs to keep LDL less than 70, and HDL more than 40. 02/27/2020 LDL 93 Continue simvastati n 80 mg Will get fasting lipids for follow-up Essential hypertension 09978643 I10 Well controlled on current regimen Chronic di astolic heart failure 949710654 I50.32 Seems to be well compensate d, appears euvolemic. Normal Left ventricula r systolic function Edema of l ower extremity 056115833 R60.0 will increased her lasix to BID for three days then go back to daily Venous reflux 10/26/2017 : Mild bilateral reflux disease noted. Venous doppler 10/26/2017 : Negative bilateral venous study. Will repeat echo Continue Lasix, leg elevation, and low salt diet.Obtai n echo to evaluate for structural /functiona l disease. Sleep apnea 90893243 G47 .30 Compliant with nightly CPAP use Dyspnea on exertion 6084 5006 R06.09 Stable, unchanged. Atypical chest pain 1025 92596 R07.89 [facility], has high Han[place] Risk score. Has Known CAD, or CAD risk equivalent . To look for any ischemia. Cardiac CTA 11/21/2018 : Mild coronary artery disease. [id number] Inocencio Buenrostro MD [place] [facility] [address] [place] [address] 09/14/2023 11:00:48 09/14/2023 12:23:29 Dyslipidemia 544629934 E78.5 Needs to keep LDL less than 70, and HDL more than 40.*Last LDL was 70 done on 08/18/21.P t takes simvastati n 80 mg. Continue simvastati n 80 mg Will get fasting lipids for follow-up Essential hypertension 58138424 I10 Well controlled on current regimen Chronic di astolic heart failure 529683548 I50.32 Seems to be well compensate d, appears euvolemic. will repeat her echo Edema of l ower extremity 471608014 R60.0 will increased her lasix to BID for three days then go back to daily Venous reflux 10/26/2017 : Mild bilateral reflux disease noted. Venous doppler 10/26/2017 : Negative bilateral venous study. Will repeat echo Continue Lasix, leg elevation, and low salt diet.Obtai n echo to evaluate for structural /functiona l disease. Sleep apnea 79666721 G47 .30 Compliant with nightly CPAP use Dyspnea on exertion 6084 5006 R06.09 Obtain echo to evaluate for structural /functiona l disease. Atypical chest pain 1025 54696 R07.89 positive stress test at the inferior which is small in sizewill repeat her echo Cardiac CTA 11/21/2018 : Mild coronary artery disease. [id number] Inocencio Buenrostro MD [place] [facility] [address] [place] [address] 09/28/2023 09:57:11 09/28/2023 10:35:31 Dyslipidemia 708689223 E78.5 Needs to keep LDL less than 70, and HDL more than 40.*Last LDL was 70 done on 08/18/21.P t takes simvastati n 80 mg. Continue simvastati n 80 mg Will get fasting lipids for follow-up Essential hypertension 05825118 I10 Well controlled on current regimen Chronic di astolic heart failure 554405527 I50.32 Seems to be well compensate d, appears euvolemic. will repeat her echo Edema of l ower extremity 340959448 R60.0 will increased her lasix to BID for three days then go back to daily Venous reflux 10/26/2017 : Mild bilateral reflux disease noted. Venous doppler 10/26/2017 : Negative bilateral venous study. Will repeat echo Continue Lasix, leg elevation, and low salt diet.Obtai n echo to evaluate for structural /functiona l disease. Sleep apnea 19766700 G47 .30 Compliant with nightly CPAP use Dyspnea on exertion 6084 5006 R06.09 The patient will be scheduled for left heart catheteriz ation, with coronary angiogram, and possible PTCA/Stent . The procedure was discussed with the patient, and risks, benefits, and alternativ e options were explained. The patient was given informatio n about heart catheteriz ation and interventi onal procedures . The patient agrees to proceed. Atypical chest pain 1025 89957 R07.89 positive stress test at the inferior which is small in sizeThe patient will be scheduled for left heart catheteriz ation, with coronary angiogram, and possible PTCA/Stent . The procedure was discussed with the patient, and risks, benefits, and alternativ e options were explained. The patient was given informatio n about heart catheteriz ation and interventi onal procedures . The patient agrees to proceed. [id number] Inocencio Buenrostro MD [place] [facility] [address] [place] [address] 10/23/2023 10:07:47 10/23/2023 10:51:56 Dyslipidemia 476722470 E78.5 Needs to keep LDL less than 70, and HDL more than 40.*Last LDL was 70 done on 08/18/21.P t takes simvastati n 80 mg. Continue simvastati n 80 mg Will get fasting lipids for follow-up Essential hypertension 74683456 I10 Well controlled on current regimen Chronic di astolic heart failure 429223652 I50.32 Seems to be well compensate d, appears euvolemic. will repeat her echo Edema of l ower extremity 085774571 R60.0 will increased her lasix to BID for three days then go back to daily Venous reflux 10/26/2017 : Mild bilateral reflux disease noted. Venous doppler 10/26/2017 : Negative bilateral venous study. Will repeat echo Continue Lasix, leg elevation, and low salt diet.Obtai n echo to evaluate for structural /functiona l disease. Sleep apnea 86604869 G47 .30 Compliant with nightly CPAP use Dyspnea on exertion 6084 5006 R06.09 cath with mild Coronary Artery Disease [id number] Inocencio Buenrostro MD [place] [facility] [address] [place] [address] 04/18/2024 10:02:42 04/18/2024 10:53:20 Dyslipidemia 069313743 E78.5 Needs to keep LDL less than 70, and HDL more than 40.*Last LDL was 70 done on 08/18/21.P t takes simvastati n 80 mg. Continue simvastati n 80 mg Will get fasting lipids for follow-up Essential hypertension 02416058 I10 Well controlled on current regimen Chronic di astolic heart failure 587175636 I50.32 Seems to be well compensate d, appears euvolemic. will repeat her echo Edema of l ower extremity 205882264 R60.0 will increased her lasix to BID for three days then go back to daily Venous reflux 10/26/2017 : Mild bilateral reflux disease noted. Venous doppler 10/26/2017 : Negative bilateral venous study. Will repeat echo Continue Lasix, leg elevation, and low salt diet.Obtai n echo to evaluate for structural /functiona l disease. Sleep apnea 02101144 G47 .30 Compliant with nightly CPAP use Dyspnea on exertion 6084 5006 R06.09 cath with mild Coronary Artery Disease [id number] Inocencio Buenrostro MD [place] [facility] [address] [place] [address] 11/14/2024 17:48:41 11/14/2024 18:40:37 Dyslipidemia 815597688 E78.5 Needs to keep LDL less than 70, and HDL more than 40.*Last LDL was 70 done on 08/18/21.P t takes simvastati n 80 mg. Continue simvastati n 80 mg Will get fasting lipids for follow-up Essential hypertension 07441235 I10 Well controlled on current regimen Chronic di astolic heart failure 746561721 I50.32 Seems to be well compensate d, appears euvolemic. Edema of l ower extremity 012939800 R60.0 On Lasix Venous reflux 10/26/2017 : Mild bilateral reflux disease noted. Venous doppler 10/26/2017 : Negative bilateral venous study. Continue Lasix, leg elevation, and low salt diet.Obtai n echo to evaluate for structural /functiona l disease. Sleep apnea 20667259 G47 .30 Compliant with nightly CPAP use Dyspnea on exertion 6084 5006 R06.09 cath with mild Coronary Artery Disease [id number] Inocencio Buenrostro MD [place] [facility] [address] [place] [address] 05/29/2025 13:47:33 05/29/2025 14:24:41 Dyslipidemia 827940371 E78.5 Needs to keep LDL less than 70, and HDL more than 40.*Last LDL was 72 .Pt takes simvastati n 80 mg. Essential hypertension 06667308 I10 Well controlled on current regimen Chronic di astolic heart failure 517045322 I50.32 Seems to be well compensate d, appears euvolemic. Edema of l ower extremity 505707000 R60.0 On Lasix Venous reflux 10/26/2017 : Mild bilateral reflux disease noted. Venous doppler 10/26/2017 : Negative bilateral venous study. Continue Lasix, leg elevation, and low salt diet.Obtai n echo to evaluate for structural /functiona l disease. Sleep apnea 37033484 G47 .30 Compliant with nightly CPAP use Dyspnea on exertion 6084 5006 R06.09 cath with mild Coronary Artery Disease Health Concerns Section Related Observation LastModified by Organization Detai ls LastModified Time None Recorded Concern Status LastModified by Organization Details LastModified Time None Recorded Advance Directives Directive None Recorded Payers Insurance Date Sequence Insurance Name Policy Number Policy Hernandez Covered Member ID Hernandez Member ID Guarantor Name 05/29/2025 1 [facility] (MEDICARE REPLACEMENT/AD VANTAGE - HMO) [id number] Ewelina Roland [id number] Ewelina Roland 05/29/2025 1 [employer]AN - DUAL (MEDICARE - MEDICAID REPLACEMENT HMO) Ewelina Roland [id number] Ewelina Roland 05/29/2025 1 [employer] [place] ON OR AFTER 2020 (MEDICAID REPLACEMENT - HMO) Ewelina Roland [id number] Ewelina Roland 05/29/2025 1 [place] Ewelina Roland [id number] Ewelina Roland 05/29/2025 1 [place] Ewelina Roland [id number] Ewelina Roland 05/29/2025 1 [place] Ewelina Roland [id number] Ewelina Roland 05/29/2025 2 [place] [facility] [place] Ewelina Roland [id number] Ewelina Roland Notes Date Note Type Note Provider Name and Address Organization Details Recorded Time 09/28/2023 text/html 09/28/23CC : Cardiac follow [id number] -[place] woman with mild CAD per CTA 2019, diastolic heart failure (LVEF 55%), family history of heart attack, hypertension, hyperlipidemia, WALI on CPAP , and obesity presents today for 2 week follow-up with labs results.She was last seen in the clinic on 09/14/23, since then she was in ER with left arm weakness Denies chest pain.Denies shortness of breath at rest. Has mild dyspnea on exertion.No orthopnea. No PNDs.Denies heart palpitations.Denies dizziness. Denies syncope or near syncope.No ankle or leg edema.No major bleeding events.No reported side effects from medications. Taking medications as prescribed with no missed doses.Denies snoring, daytime somnolence and AM headache.*Last LDL was 56 done on 09/23/23 .Pt takes 09/22/23. 09/23/23:Na 141,K 3.8,CL 97,CO2 30,GLU 119,BUN 14,Cr 1.04,AST 18,ALT 18,HbA1c 6.1.09/23/23:TC 113,TG 70,HDL 42,LDL 56. Previously:Her stress test is positive with small blockage at the inferior. *Had Positive stress test on 09/01/23 with Normal LV systolic function. Reversible defect consistent with ischemia in inferior -septal (small ) area. LVEF: 48%. She had cold last week and she is still coughing. She had some chest pain. She had leg swelling when she had a travel She had stable leg swelling on Lasix daily. *Had Positive stress test done in 11/02/18 with ischemia in lateral area. Normal LV systolic function. LVEF 59%. and CTA with mild Coronary Artery Disease *Had Cardiac CTA done in 11/21/18 showed Mild coronary artery disease. *Venous with neg duplex showing mild reflux 10/26/17. *Had ECHO 10/26/17. The LV chamber size, function and contractility is normal. The LVEF is 55-60%. Mitral valve prolapse cannot be ruled out. There is mild mitral regurgitation. and tricuspid regurgitation.Results from this visit, or from the past: 02/27/20: TC 153 ,TG 73,HDL 45 ,LDL 93, 02/09/19: Na 143, K 4.0 ,CL 98 ,CO2 29, GLU 97,BUN 14 , CR 0.90 , AST 14 ,ALT19 02/09/19: TC 131 ,TG 64 ,HDL 46,LDL 72 ,CK 121 09/10/17: Na 144 ,K 3.8 , CL 98 ,CO2 29 ,GLU 91 ,BUN 17 ,CR 0.86 ,TC 161 ,TG 94 , HDL 48 ,LDL 94 06/03/16 : SOD 141,K 4.0,CL 96,CO2 30,GLU 92,BUN 10,CR 0.76,AST 18,ALT 16,TC 191,TG 114,HDL 50,LDL 118. 10/31/13 SOD 141, K 3.8, CL 99, Co2 28 , GLU 83, BUN 10 ,CR 0.7, CK 108 . LIPIDS: 10/31/13 : TC 180. TG 99. LDL 108. HDL 52. AST 16 . ALT 15. EKG (08/28/20): NSR, NSST changes 08/28/19 EKG : Sinus Bradycardia ,low voltage in chest leads,Poor R progression in chest leads EKG 02/13/19 low voltage possible pulmonary disease EKG 06/15/18: NSR, NSST changes EK09/13/17 Sinus rhythm. Occasional ectopic ventricular beat. nonspecific T abnormal. Abnormal. EK03/17/17 Sinus bradycardia. Within normal limits. EK08/01/15 Sinus rhythm. Anteroseptal infarct. age undetermined. Abnormal 11/02/18 TDM-Positive stress test. Reversible defect consistent with ischemia in lateral area. Normal LV systolic function. LVEF 59%. 11/21/18 CTA chest: Mild coronary artery disease. 10/26/17 ECHO: LV chamber size is normal. There is normal global systolic function and contractility. The estimated left ventricle ejection fraction is 55-60%(normal). Mitral valve prolapse cannot be ruled out. There is mild mitral regurgitation. There is mild tricuspid regurgitation. Estimated RVSP is 35 mmHg. 11/02/18 TDM-Positive stress test. Reversible defect consistent with ischemia in lateral area. Normal LV systolic function. LVEF 59%. TDM 06-16-2016 :Negative stress test. Normal LV systolic function. Exercise tolerance. LVEF 46% NUCLEAR STRESS TEST: 08/12/09 Negative stress test. Normal left ventricle systolic function. Artifact noted. US, Doppler, Venous 10/26/17 : Negative bilateral venous study. venous mapping, lower extremity, complete 10-26-2017 Venous Mapping, Lower Extremity, Complete 10/26/17 : Mild bilateral reflux disease noted. 10/26/17 ECHO: LV chamber size is normal. There is normal global systolic function and contractility. The estimated left ventricle ejection fraction is 55-60%(normal). Mitral valve prolapse cannot be ruled out. There is mild mitral regurgitation. There is mild tricuspid regurgitation. Estimated RVSP is 35 mmHg. ECHO 04/09/08: Normal left ventricular systolic function. Mild mitral valve regurgitation and tricuspid valve regurgitation ECHO : LV chamber size is normal. LV wall thickness is normal. There is normal global systolic function and contractility. The estimated LV ejection fraction is 55-60%. Diastolic function is abnormal. There is mild thickening of mitral valve anterior and posterior leaflets. There is trace mitral regurgitation. Inocencio Buenrostro MD [address] [place], [address], [facility] 09/28/2023 10:25:20 10/23/2023 text/html 10/23/23CC : Cardiac follow [id number] -[place] woman with mild CAD per CTA 2019, diastolic heart failure (LVEF 55%), family history of heart attack, hypertension, hyperlipidemia, WALI on CPAP , and obesity presents today for 1 month follow-up.She was last seen in the clinic on 09/28/23, since then she had cath, with mild Coronary Artery DiseaseShe denies ER visits and hospitalizations since she was last seen. Denies chest pain.Denies shortness of breath at rest. Has mild dyspnea on exertion.No orthopnea. No PNDs.Denies heart palpitations.Denies dizziness. Denies syncope or near syncope.No ankle or leg edema.No major bleeding events.No reported side effects from medications. Taking medications as prescribed with no missed doses.Denies snoring, daytime somnolence and AM headache.*Last LDL was 56 done on 09/22/23.Pt takes simvastatin 80 mg. Previously:She was in ER with left arm weakness 09/23/23:Na 141,K 3.8,CL 97,CO2 30,GLU 119,BUN 14,Cr 1.04,AST 18,ALT 18,HbA1c 6.1.09/23/23:TC 113,TG 70,HDL 42,LDL 56. Her stress test is positive with small blockage at the inferior. *Had Positive stress test on 09/01/23 with Normal LV systolic function. Reversible defect consistent with ischemia in inferior -septal (small ) area. LVEF: 48%. She had cold last week and she is still coughing. She had some chest pain. She had leg swelling when she had a travel She had stable leg swelling on Lasix daily. *Had Positive stress test done in 11/02/18 with ischemia in lateral area. Normal LV systolic function. LVEF 59%. and CTA with mild Coronary Artery Disease *Had Cardiac CTA done in 11/21/18 showed Mild coronary artery disease. *Venous with neg duplex showing mild reflux 10/26/17. *Had ECHO 10/26/17. The LV chamber size, function and contractility is normal. The LVEF is 55-60%. Mitral valve prolapse cannot be ruled out. There is mild mitral regurgitation. and tricuspid regurgitation.Results from this visit, or from the past: 02/27/20: TC 153 ,TG 73,HDL 45 ,LDL 93, 02/09/19: Na 143, K 4.0 ,CL 98 ,CO2 29, GLU 97,BUN 14 , CR 0.90 , AST 14 ,ALT19 02/09/19: TC 131 ,TG 64 ,HDL 46,LDL 72 ,CK 121 09/10/17: Na 144 ,K 3.8 , CL 98 ,CO2 29 ,GLU 91 ,BUN 17 ,CR 0.86 ,TC 161 ,TG 94 , HDL 48 ,LDL 94 06/03/16 : SOD 141,K 4.0,CL 96,CO2 30,GLU 92,BUN 10,CR 0.76,AST 18,ALT 16,TC 191,TG 114,HDL 50,LDL 118. 10/31/13 SOD 141, K 3.8, CL 99, Co2 28 , GLU 83, BUN 10 ,CR 0.7, CK 108 . LIPIDS: 10/31/13 : TC 180. TG 99. LDL 108. HDL 52. AST 16 . ALT 15. EKG (08/28/20): NSR, NSST changes 08/28/19 EKG : Sinus Bradycardia ,low voltage in chest leads,Poor R progression in chest leads EKG 02/13/19 low voltage possible pulmonary disease EKG 06/15/18: NSR, NSST changes EK09/13/17 Sinus rhythm. Occasional ectopic ventricular beat. nonspecific T abnormal. Abnormal. EK03/17/17 Sinus bradycardia. Within normal limits. EK08/01/15 Sinus rhythm. Anteroseptal infarct. age undetermined. Abnormal 11/02/18 TDM-Positive stress test. Reversible defect consistent with ischemia in lateral area. Normal LV systolic function. LVEF 59%. 11/21/18 CTA chest: Mild coronary artery disease. 10/26/17 ECHO: LV chamber size is normal. There is normal global systolic function and contractility. The estimated left ventricle ejection fraction is 55-60%(normal). Mitral valve prolapse cannot be ruled out. There is mild mitral regurgitation. There is mild tricuspid regurgitation. Estimated RVSP is 35 mmHg. 11/02/18 TDM-Positive stress test. Reversible defect consistent with ischemia in lateral area. Normal LV systolic function. LVEF 59%. TDM 06-16-2016 :Negative stress test. Normal LV systolic function. Exercise tolerance. LVEF 46% NUCLEAR STRESS TEST: 08/12/09 Negative stress test. Normal left ventricle systolic function. Artifact noted. US, Doppler, Venous 10/26/17 : Negative bilateral venous study. venous mapping, lower extremity, complete 10-26-2017 Venous Mapping, Lower Extremity, Complete 10/26/17 : Mild bilateral reflux disease noted. 10/26/17 ECHO: LV chamber size is normal. There is normal global systolic function and contractility. The estimated left ventricle ejection fraction is 55-60%(normal). Mitral valve prolapse cannot be ruled out. There is mild mitral regurgitation. There is mild tricuspid regurgitation. Estimated RVSP is 35 mmHg. ECHO 04/09/08: Normal left ventricular systolic function. Mild mitral valve regurgitation and tricuspid valve regurgitation ECHO : LV chamber size is normal. LV wall thickness is normal. There is normal global systolic function and contractility. The estimated LV ejection fraction is 55-60%. Diastolic function is abnormal. There is mild thickening of mitral valve anterior and posterior leaflets. There is trace mitral regurgitation. Inocencio Buenrostro MD [address] [place], [address], [place] [facility] 10/23/2023 10:48:14 04/18/2024 text/html 04/18/24CC : Cardiac follow [id number] -[place] woman with mild CAD per CTA 2019, diastolic heart failure (LVEF 55%), family history of heart attack, hypertension, hyperlipidemia, WALI on CPAP , and obesity presents today for 6 month follow-up.She was last seen in the clinic on 10/23/23, since then she has knee painShe denies ER visits and hospitalizations since she was last seen. Today reports:Denies chest pain.Denies shortness of breath at rest. Has mild dyspnea on exertion.No orthopnea. No PNDs.Denies heart palpitations.Denies dizziness. Denies syncope or near syncope.No ankle or leg edema.No major bleeding events.No reported side effects from medications. Taking medications as prescribed with no missed doses.Denies snoring, daytime somnolence and AM headache.*Last LDL was 56 done on 09/22/23.Pt takes simvastatin 80 mg. Previously:She had cath, with mild Coronary Artery Disease She was in ER with left arm weakness Her stress test is positive with small blockage at the inferior. *Had Positive stress test on 09/01/23 with Normal LV systolic function. Reversible defect consistent with ischemia in inferior -septal (small ) area. LVEF: 48%. She had cold last week and she is still coughing. She had some chest pain. She had leg swelling when she had a travel She had stable leg swelling on Lasix daily. *Had Positive stress test done in 11/02/18 with ischemia in lateral area. Normal LV systolic function. LVEF 59%. and CTA with mild Coronary Artery Disease *Had Cardiac CTA done in 11/21/18 showed Mild coronary artery disease. *Venous with neg duplex showing mild reflux 10/26/17. *Had ECHO 10/26/17. The LV chamber size, function and contractility is normal. The LVEF is 55-60%. Mitral valve prolapse cannot be ruled out. There is mild mitral regurgitation. and tricuspid regurgitation.Results from this visit, or from the past: 02/27/20: TC 153 ,TG 73,HDL 45 ,LDL 93, 02/09/19: Na 143, K 4.0 ,CL 98 ,CO2 29, GLU 97,BUN 14 , CR 0.90 , AST 14 ,ALT19 02/09/19: TC 131 ,TG 64 ,HDL 46,LDL 72 ,CK 121 09/10/17: Na 144 ,K 3.8 , CL 98 ,CO2 29 ,GLU 91 ,BUN 17 ,CR 0.86 ,TC 161 ,TG 94 , HDL 48 ,LDL 94 06/03/16 : SOD 141,K 4.0,CL 96,CO2 30,GLU 92,BUN 10,CR 0.76,AST 18,ALT 16,TC 191,TG 114,HDL 50,LDL 118. 10/31/13 SOD 141, K 3.8, CL 99, Co2 28 , GLU 83, BUN 10 ,CR 0.7, CK 108 . LIPIDS: 10/31/13 : TC 180. TG 99. LDL 108. HDL 52. AST 16 . ALT 15. EKG (08/28/20): NSR, NSST changes 08/28/19 EKG : Sinus Bradycardia ,low voltage in chest leads,Poor R progression in chest leads EKG 02/13/19 low voltage possible pulmonary disease EKG 06/15/18: NSR, NSST changes EK09/13/17 Sinus rhythm. Occasional ectopic ventricular beat. nonspecific T abnormal. Abnormal. EK03/17/17 Sinus bradycardia. Within normal limits. EK08/01/15 Sinus rhythm. Anteroseptal infarct. age undetermined. Abnormal 11/02/18 TDM-Positive stress test. Reversible defect consistent with ischemia in lateral area. Normal LV systolic function. LVEF 59%. 11/21/18 CTA chest: Mild coronary artery disease. 10/26/17 ECHO: LV chamber size is normal. There is normal global systolic function and contractility. The estimated left ventricle ejection fraction is 55-60%(normal). Mitral valve prolapse cannot be ruled out. There is mild mitral regurgitation. There is mild tricuspid regurgitation. Estimated RVSP is 35 mmHg. 11/02/18 TDM-Positive stress test. Reversible defect consistent with ischemia in lateral area. Normal LV systolic function. LVEF 59%. TDM 06-16-2016 :Negative stress test. Normal LV systolic function. Exercise tolerance. LVEF 46% NUCLEAR STRESS TEST: 08/12/09 Negative stress test. Normal left ventricle systolic function. Artifact noted. US, Doppler, Venous 10/26/17 : Negative bilateral venous study. venous mapping, lower extremity, complete 10-26-2017 Venous Mapping, Lower Extremity, Complete 10/26/17 : Mild bilateral reflux disease noted. 10/26/17 ECHO: LV chamber size is normal. There is normal global systolic function and contractility. The estimated left ventricle ejection fraction is 55-60%(normal). Mitral valve prolapse cannot be ruled out. There is mild mitral regurgitation. There is mild tricuspid regurgitation. Estimated RVSP is 35 mmHg. ECHO 04/09/08: Normal left ventricular systolic function. Mild mitral valve regurgitation and tricuspid valve regurgitation ECHO : LV chamber size is normal. LV wall thickness is normal. There is normal global systolic function and contractility. The estimated LV ejection fraction is 55-60%. Diastolic function is abnormal. There is mild thickening of mitral valve anterior and posterior leaflets. There is trace mitral regurgitation. Inocencio Buenrostro MD [address] [place], [address], [facility] 04/18/2024 10:40:26 11/14/2024 text/html *Will get fasting lipids,CC : Cardiac follow [id number] -[place] woman with mild CAD per CTA 2019, diastolic heart failure (LVEF 55%), family history of heart attack, hypertension, hyperlipidemia, WALI on CPAP , and obesity presents today for follow-up with ECHO results.She was last seen in the clinic on 04/18/24, since then she had ECHO on 05/18/24 showed LV chamber size is normal. The estimated left ventricle ejection fraction is 60-65% (normal). LV relaxation is impaired.She denies ER visits and hospitalizations since she was last seen. Today reports:no ccDenies chest pain.Denies shortness of breath at rest. Has mild dyspnea on exertion.No orthopnea. No PNDs.Denies heart palpitations.Denies dizziness. Denies syncope or near syncope.No ankle or leg edema.No major bleeding events.No reported side effects from medications. Taking medications as prescribed with no missed doses.Denies snoring, daytime somnolence and AM headache.*Last LDL was 56 done on 09/22/23.Pt takes simvastatin 80 mg. *Had ECHO on 05/18/24 showed LV chamber size is normal. The estimated left ventricle ejection fraction is 60-65% (normal). LV relaxation is impaired. The aortic valve is mildly calcified. There is mild aortic root calcification. There is mild thickening of the mitral valve anterior leaflet. There is mild calcification of mitral valve anterior leaflet. There is trace mitral regurgitation. There is mild tricuspid regurgitation. Previously:She had cath, with mild Coronary Artery Disease *Had Positive stress test on 09/01/23 with Normal LV systolic function. Reversible defect consistent with ischemia in inferior -septal (small ) area. LVEF: 48%. She had stable leg swelling on Lasix daily. *Had Cardiac CTA done in 11/21/18 showed Mild coronary artery disease. *Venous with neg duplex showing mild reflux 10/26/17.Results from this visit, or from the past:02/27/20: TC 153 ,TG 73,HDL 45 ,LDL 93, 02/09/19: Na 143, K 4.0 ,CL 98 ,CO2 29, GLU 97,BUN 14 , CR 0.90 , AST 14 ,ALT19 02/09/19: TC 131 ,TG 64 ,HDL 46,LDL 72 ,CK 121 09/10/17: Na 144 ,K 3.8 , CL 98 ,CO2 29 ,GLU 91 ,BUN 17 ,CR 0.86 ,TC 161 ,TG 94 , HDL 48 ,LDL 94 06/03/16 : SOD 141,K 4.0,CL 96,CO2 30,GLU 92,BUN 10,CR 0.76,AST 18,ALT 16,TC 191,TG 114,HDL 50,LDL 118. 10/31/13 SOD 141, K 3.8, CL 99, Co2 28 , GLU 83, BUN 10 ,CR 0.7, CK 108 . LIPIDS: 10/31/13 : TC 180. TG 99. LDL 108. HDL 52. AST 16 . ALT 15. EKG (08/28/20): NSR, NSST changes 08/28/19 EKG : Sinus Bradycardia ,low voltage in chest leads,Poor R progression in chest leads EKG 02/13/19 low voltage possible pulmonary disease EKG 06/15/18: NSR, NSST changes EK09/13/17 Sinus rhythm. Occasional ectopic ventricular beat. nonspecific T abnormal. Abnormal. EK03/17/17 Sinus bradycardia. Within normal limits. EK08/01/15 Sinus rhythm. Anteroseptal infarct. age undetermined. Abnormal 11/02/18 TDM-Positive stress test. Reversible defect consistent with ischemia in lateral area. Normal LV systolic function. LVEF 59%. 11/21/18 CTA chest: Mild coronary artery disease. 10/26/17 ECHO: LV chamber size is normal. There is normal global systolic function and contractility. The estimated left ventricle ejection fraction is 55-60%(normal). Mitral valve prolapse cannot be ruled out. There is mild mitral regurgitation. There is mild tricuspid regurgitation. Estimated RVSP is 35 mmHg. 11/02/18 TDM-Positive stress test. Reversible defect consistent with ischemia in lateral area. Normal LV systolic function. LVEF 59%. TDM 06-16-2016 :Negative stress test. Normal LV systolic function. Exercise tolerance. LVEF 46% NUCLEAR STRESS TEST: 08/12/09 Negative stress test. Normal left ventricle systolic function. Artifact noted. US, Doppler, Venous 10/26/17 : Negative bilateral venous study. venous mapping, lower extremity, complete 10-26-2017 Venous Mapping, Lower Extremity, Complete 10/26/17 : Mild bilateral reflux disease noted. 10/26/17 ECHO: LV chamber size is normal. There is normal global systolic function and contractility. The estimated left ventricle ejection fraction is 55-60%(normal). Mitral valve prolapse cannot be ruled out. There is mild mitral regurgitation. There is mild tricuspid regurgitation. Estimated RVSP is 35 mmHg. ECHO 04/09/08: Normal left ventricular systolic function. Mild mitral valve regurgitation and tricuspid valve regurgitation ECHO : LV chamber size is normal. LV wall thickness is normal. There is normal global systolic function and contractility. The estimated LV ejection fraction is 55-60%. Diastolic function is abnormal. There is mild thickening of mitral valve anterior and posterior leaflets. There is trace mitral regurgitation. Inocencio Buenrostro MD [address] [place], [address], [facility] 11/14/2024 18:37:56 05/29/2025 text/html *Obtain echo, Will get fasting [id number]/25CC: dyspnea on [id number] -[place] woman with mild CAD per CTA 2019, diastolic heart failure (LVEF 55%), family history of heart attack, hypertension, hyperlipidemia, WALI on CPAP , and obesity presents today for 6 month follow-up with labs results.She was last seen in the clinic on 11/14/24, since then she had a stress fracture of the left foot Denies chest pain.Denies shortness of breath at rest. Has mild dyspnea on exertion.No orthopnea. No PNDs.Denies heart palpitations.Denies dizziness. Denies syncope or near syncope.No ankle or leg edema.No major bleeding events.No reported side effects from medications. Taking medications as prescribed with no missed doses.Denies snoring, daytime somnolence and AM headache.*Last LDL was 72 done on 05/24/25.Pt takes simvastatin 80 mg. 05/24/25:Na 143,K 3.6,CL 100,CO2 26,GLU 107,BUN 19,Cr 0.94,AST 16,ALT 16,CK 99,T3 .05/24/25:TC 132,TG 82,HDL 44,LDL 72. Previously:*EKG 11/14/24: Sinus rhythm (slow), P; normal, QRS; horizontal axis, low voltage in precordial leads, ST-T; normal, conclusion: ECG without significant abnormalities. *Had ECHO on 05/18/24 showed LV chamber size is normal. The estimated left ventricle ejection fraction is 60-65% (normal). LV relaxation is impaired. The aortic valve is mildly calcified. There is mild aortic root calcification. There is mild thickening of the mitral valve anterior leaflet. There is mild calcification of mitral valve anterior leaflet. There is trace mitral regurgitation. There is mild tricuspid regurgitation. She had cath, with mild Coronary Artery Disease *Had Positive stress test on 09/01/23 with Normal LV systolic function. Reversible defect consistent with ischemia in inferior -septal (small ) area. LVEF: 48%. She had stable leg swelling on Lasix daily. *Had Cardiac CTA done in 11/21/18 showed Mild coronary artery disease. *Venous with neg duplex showing mild reflux 10/26/17.Results from this visit, or from the past:02/27/20: TC 153 ,TG 73,HDL 45 ,LDL 93, 02/09/19: Na 143, K 4.0 ,CL 98 ,CO2 29, GLU 97,BUN 14 , CR 0.90 , AST 14 ,ALT19 02/09/19: TC 131 ,TG 64 ,HDL 46,LDL 72 ,CK 121 09/10/17: Na 144 ,K 3.8 , CL 98 ,CO2 29 ,GLU 91 ,BUN 17 ,CR 0.86 ,TC 161 ,TG 94 , HDL 48 ,LDL 94 06/03/16 : SOD 141,K 4.0,CL 96,CO2 30,GLU 92,BUN 10,CR 0.76,AST 18,ALT 16,TC 191,TG 114,HDL 50,LDL 118. 10/31/13 SOD 141, K 3.8, CL 99, Co2 28 , GLU 83, BUN 10 ,CR 0.7, CK 108 . LIPIDS: 10/31/13 : TC 180. TG 99. LDL 108. HDL 52. AST 16 . ALT 15. EKG (08/28/20): NSR, NSST changes 08/28/19 EKG : Sinus Bradycardia ,low voltage in chest leads,Poor R progression in chest leads EKG 02/13/19 low voltage possible pulmonary disease EKG 06/15/18: NSR, NSST changes EK09/13/17 Sinus rhythm. Occasional ectopic ventricular beat. nonspecific T abnormal. Abnormal. EK03/17/17 Sinus bradycardia. Within normal limits. EK08/01/15 Sinus rhythm. Anteroseptal infarct. age undetermined. Abnormal 11/02/18 TDM-Positive stress test. Reversible defect consistent with ischemia in lateral area. Normal LV systolic function. LVEF 59%. 11/21/18 CTA chest: Mild coronary artery disease. 10/26/17 ECHO: LV chamber size is normal. There is normal global systolic function and contractility. The estimated left ventricle ejection fraction is 55-60%(normal). Mitral valve prolapse cannot be ruled out. There is mild mitral regurgitation. There is mild tricuspid regurgitation. Estimated RVSP is 35 mmHg. 11/02/18 TDM-Positive stress test. Reversible defect consistent with ischemia in lateral area. Normal LV systolic function. LVEF 59%. TDM 06-16-2016 :Negative stress test. Normal LV systolic function. Exercise tolerance. LVEF 46% NUCLEAR STRESS TEST: 08/12/09 Negative stress test. Normal left ventricle systolic function. Artifact noted. US, Doppler, Venous 10/26/17 : Negative bilateral venous study. venous mapping, lower extremity, complete 10-26-2017 Venous Mapping, Lower Extremity, Complete 10/26/17 : Mild bilateral reflux disease noted. 10/26/17 ECHO: LV chamber size is normal. There is normal global systolic function and contractility. The estimated left ventricle ejection fraction is 55-60%(normal). Mitral valve prolapse cannot be ruled out. There is mild mitral regurgitation. There is mild tricuspid regurgitation. Estimated RVSP is 35 mmHg. ECHO 04/09/08: Normal left ventricular systolic function. Mild mitral valve regurgitation and tricuspid valve regurgitation ECHO : LV chamber size is normal. LV wall thickness is normal. There is normal global systolic function and contractility. The estimated LV ejection fraction is 55-60%. Diastolic function is abnormal. There is mild thickening of mitral valve anterior and posterior leaflets. There is trace mitral regurgitation. Inocencio Buenrostro MD [address] [place], [address], [facility] - [facility] 05/29/2025 14:19:50 OBGyn Episode No OBEpisode recorded.
--- OUTSIDE RECORDS SUMMARY | 2025-07-25 11:43 | XMS_ITS | Clinical Summary ---
Author Organization [facility] [place] Address [address] [address] [place] [address] Care Team Providers Care Tool Repairer Bench Name Role Phone Unavailable Primary Care Provider [...] migh t be different from the original. School Teacher- Inocencio Buenrostro MD [place] No additional problems on file Family History Medical History Relation Name Comments [...] on file Legal Sex Female 3:00 PM INFORMATION ARCHITECT Gender Identity Not on file Sexual Orientation Not on file Last Filed Vital Signs Vital Sign Reading Time Taken Comments Blood Pressure 125/77 10/14/2023 4:30 PM INFORMATION ARCHITECT Pulse 64 10/14/2023 4:30 PM INFORMATION ARCHITECT Temperature 36.2 C (97.1 F) 10/14/2023 11:31 AM INFORMATION ARCHITECT Respiratory Rate 18 10/14/2023 4:30 PM INFORMATION ARCHITECT Oxygen Saturation 95% 10/14/2023 4:30 PM INFORMATION ARCHITECT Inhaled Oxygen Concentration - - Weight 112.9 kg (249 lb) 10/14/2023 11:31 AM INFORMATION ARCHITECT Height 152.4 cm (5') 10/08/2023 2:45 PM INFORMATION ARCHITECT Body Mass Index 48.63 10/08/2023 2:45 PM INFORMATION ARCHITECT Plan of Treatment Health Maintenance Due Date Last Done Comments DTAP/TDAP/TD VACCINES (1 - Tdap) 01/04/1980 HPV/Cotest (21-29) 1982 CERVICAL CANCER SCREENING 1991 HPV/Cotest (30-65) 1991 PAP SMEAR 1991 COLORECTAL SCREENING 2006 Colorectal Cancer Screening 2006 FIT-DNA Q 3 years 2006 FIT/FOBT Q 1 year 2006 Flex Sig/CT Colonography Q 5 years 2006 ZOSTER VACCINE (1 of 2) 2011 BREAST CANCER SCREENING 12/02/2022 12/02/2021, 12/02 INFLUENZA VACCINE (#1) 2025 09/15/2018, 2015 RSV VACCINE (60+ or ) (1 - 1-dose 75+ series) 01/04/2036 Medical Devices Implanted Type Area Quality Assurance Supervisor Device Identifier Shelf Expiration Date Model / Serial / Lot Sealant Mynx Vasc Closure 5fr Vcd [id number] - [id number] Implanted:Qty: 1 on 10/14/2023 at [facility] Closure Device Right: Groin CORDIS 08/10/2025 [id number] / / [id number] Insurance MEDICARE PART A AND B MEDICAID [place] Advance Directives For more information, please contact: [phone] * Full Code (Latest Code Status on File) Date Activated Date Inactivated Comments 10/14/2023 10:46 AM 10/14/2023 7:06 PM
--- OUTSIDE RECORDS SUMMARY | 2025-07-25 11:43 | XMS_ITS | Clinical Summary ---
Author Organization [facility] Address [address] [place] [address] Care Team Providers Care Manager Mining Name Role Phone Angela Monzon NP Primary Care Provider + [phone] Allergies No known active allergies Medications aspirin [...] (09/11/2019): Continue CPAP therapy Assessment & Plan (12/07/2024 2:42 PM RUBBER AND POUNDER): Due to ongoing symptoms, the patient will continue CPAP at 16 cm water pressure. DME adapt Assessment & Plan (11/23/2023 11:10 AM RUBBER AND POUNDER): Patient continue to wear her CPAP at 16 cm water pressure while sleeping. Her DME is adapt. Assessment & Plan (11/17/2022 1:04 PM RUBBER AND POUNDER): Patient continue to wear her CPAP at 16 cm water pressure while sleeping. Her DME is adapt. Dyslipidemia 09/13/2017 Essential hypertension 09/13/2017 Other secondary pulmonary hypertension 6 Cerebrovascular accident 01/30/2016 Congestive heart failure 01/30/2016 Stress 01/30/2016 Immunizations Immunization Administration Dates Next Due Influenza, Quadrivalent, Split, [...] Tobacco: Never Tobacco Cessation:Counseling Given: Not Answered AUDIT-C Answer Date Recorded Q1: How often do you have a drink containing alc ohol? Monthly or less 12/07/2024 Average Number of Drinks Not on file 025 Frequency of Binge Drinking Not on file 11/12 Comments Unknown Sex and Gender Information Value Date Recorded Sex Assigned at Not on file Legal Sex Female 6:15 PM RUBBER AND POUNDER Gender Identity Not on file Sexual Orientation Not on file Obstetrics History Last Filed Vital Signs Vital Sign Reading Time Taken Comments Blood Pressure 118/64 12/07/2024 1:43 PM RUBBER AND POUNDER Pulse 64 12/07/2024 1:43 PM RUBBER AND POUNDER Temperature 35.5 C (95.9 F) 12/07/2024 1:43 PM RUBBER AND POUNDER Respiratory Rate 16 12/07/2024 1:43 PM RUBBER AND POUNDER Oxygen Saturation 97% 12/07/2024 1:43 PM RUBBER AND POUNDER Inhaled Oxygen Concentration - - Weight 114.3 kg (252 lb) 12/07/2024 1:43 PM RUBBER AND POUNDER Height 152.4 cm (5') 12/07/2024 1:43 PM RUBBER AND POUNDER Body Mass Index 49.22 12/07/2024 1:43 PM RUBBER AND POUNDER Plan of Treatment Health Maintenance Due Date [...] 12/02/2022 12/02/2021, 12/02/2021, 12/02/2021 Influenza Vaccine (#1) 2025 09/15/2018, 2015 Insurance [facility] MEDICARE ADVANTAGE Care Teams Manager Mining Relationship Specialty Start Date End Date Angela Monzon NP [address] [place] [address] [place] [address] PCP - General Nurse Practitioner 06/19/24
== END 2025-07-25 10:06 | disposition home or self-care (01) ==
LOC: ANHFOHIMG 10:07
PROVIDERS: PCP Nurse Practitioner; Visit Provider Obstetrics & Gynecology
DX: M85.89 Other specified disorders of bone density and structure, multiple sites (principal); R29.890 Loss of height; Z78.0 Asymptomatic menopausal state; Z13.820 Encounter for screening for osteoporosis
CPT/HCPCS: 77080